=== PATIENT | female | born 1955 | race Caucasian/White ===

== ENCOUNTER 2020-01-25 13:13 | Emergency (ER) | payer MEDICARE, MEDICAID, SELFPAY ==
--- NOTE | ~2020-01-25 | US_ITS ---
EXAMINATION: US venous doppler [facility] DATE: 01/25/2020 14:26 INDICATION: Left lower limb pain. TECHNIQUE: Grayscale ultrasound images without and with compression and Doppler ultrasound images of the left lower extremity veins were obtained. COMPARISON: Ultrasound 11/27/2018 FINDINGS: The visualized portions of left common femoral vein, profunda (deep) femoral vein, femoral vein, popl iteal vein, peroneal veins, posterior tibial veins, and greater saphenous vein outflow are patent. IMPRESSION: 1. No deep venous thrombosis. Reviewed, dictated and finalized at location A.
--- NOTE | ~2020-01-25 | XR_ITS ---
EXAMINATION: XR chest 1V portable DATE: 01/25/2020 13:45 INDICATION: Shortness of breath. TECHNIQUE: A single frontal view of the chest was obtained. COMPARISON: Chest single view 02/02/2019, CT abdomen and pelvis 11/27/2018 FINDINGS: There is no pneumonia, pleural effusion, or pneumothorax. Cardiomegaly is noted. IMPRESSION: 1. Cardiomegaly. Reviewed, dictated and finalized at location A. IMPRESSION: 1. Cardiomegaly.
[2020-01-25 13:13] VITALS: BP 130/74; PULSE 92; RESP 16; TEMP 36.6; O2SAT 98
--- NOTE | 2020-01-25 13:21 | ECG_ITS ---
Measurements Intervals [place] Rate: 54 P: 48 WA: 206 QRS: 160 QRSD: 106 T: -53 QT: 497 QTc: 472 Interpretive Statements SINUS BRADYCARDIA BORDERLINE AV CONDUCTION DELAY ST-T WAVE ABNORMALITY IN ANT/INF LEADS- CONSIDER ISCHEMIA BASELINE ARTIFACT- I, II, AVR, AVL, V6 ABNORMAL ECG Electronically Signed On 01-25-2020 15:11:07 CDT by Felice Ness D.O.
[2020-01-25 13:54] LABS: Basophils Absolute Auto 0.1 K/mm3 (0.0-0.1); Basophils Percent Auto 0.6 % (0.2-1.2); Eosinophils Absolute Auto 0.2 K/mm3 (0-0.3); Eosinophils Percent Auto 2.2 % (0-4.4); Hematocrit 43.2 % (37.0-47.0); Hemoglobin 14.4 g/dL (12.0-15.0); Immature Granulocyte Absolute 0.04 K/mm3 (0.00-0.031); Immature Granulocyte Percent A 0.4 % (0-0.5); Lymphocytes Percent Auto 12.3 % (18.3-44.2); Mean Corpuscular HGB Conc 33.3 g/dl (32-36); Mean Corpuscular Hemoglobin 32.6 pg (26-34); Mean Corpuscular Volume 97.7 fl (80-100); Mean Platelet Volume 10.1 fl (7.4-10.4); Monocytes Absolute Auto 0.7 K/mm3 (0.1-0.6); Monocytes Percent Auto 7.6 % (2.6-8.5); Neutrophils Absolute Auto 6.9 K/mm3 (1.3-6.7); Neutrophils Percent Auto 76.9 % (45.5-73.1); Platelet Count Result 266 k/mm3 (150-375); Red Blood Count 4.42 M/mm3 (4.2-5.4); Red Cell Distribution Width 14.6 % (11.5-14.5); White Blood Count 8.9 K/mm3 (4.5-10.0)
[2020-01-25 14:04] LABS: Alanine Aminotransferase 29 U/L (4-35); Albumin Level 4.3 g/dL (3.5-5.1); Alkaline Phosphatase 387 U/L (38-126); Aspartate Amino Transferase 40 U/L (14-36); Bilirubin,Total 0.7 mg/dL (0.2-1.3); Blood Urea Nitrogen 46 mg/dL (7-17); Calcium 9.6 mg/dL (8.4-10.2); Carbon Dioxide 30 mmol/L (22-30); Chloride 100 mmol/L (98-107); Estimated CRCL calculation 33 ml/min; Estimated Glomerular Filt Rate 24; Glucose 149 mg/dL (65-105); INR 1.3; Potassium 4.5 mmol/L (3.4-5.0); Prothrombin Time 16.2 Seconds (11.1-14.7); Sodium 137 mmol/L (137-145)
[2020-01-25 14:05] LABS: Partial Thromboplastin Time 30.4 SECONDS (22.3-36.8)
[2020-01-25 14:17] LABS: NT Pro B Type Natriuretic Pept 4240 PG/ML (5-100); Troponin I < 0.012 ng/mL (0.000-0.034)
[2020-01-25] MEDS: FUROSEMIDE INJ 40 MG/4 ML VIAL IV PUSH (15:04)
--- NOTE | 2020-01-25 16:27 | ED.EXTPRO ---
HPI - Extremity Problem General Chief complaint: Extremity Problem,Nontraumatic Stated complaint: EDEMA R LEG Time Seen by Provider: 01/25/20 13:21 Source: patient, EMS and old records reviewed Mode of arrival: EMS Limitations: no limitations History of Present Illness HPI Narrative: Patient is a 64-year-old female who presents to emergency department per EMS for evaluation of some pain and swelling to the left leg. Patient with history of heart failure also has some wounds to the left leg which are being managed [facility]. Patient notes she has shortness of breath which is chronic and unchanged . Patient notes she has had a cough but has chronic cough denies acute URI symptoms. Patient denies sick contacts. On arrival patient resting comfortably in the room in no distress Related Data Home Medications Medication Instructions Recorded Confirmed Lactobacillus acidophilus 01/25/20 apixaban [Eliquis] 5 mg PO BID 01/25/20 01/25/20 atorvastatin 01/25/20 bisacodyl 10 mg PO ONCE PRN 01/25/20 cholecalciferol (vitamin D3) 01/25/20 docusate sodium PO BID 01/25/20 fluticasone furoate [Flonase INTRANASAL 01/25/20 Sensimist] insulin glargine [Basaglar KwikPen unit SUBCUT HS 01/25/20 U-100 Insulin] levothyroxine [Synthroid] 01/25/20 ondansetron HCl [Zofran] PRN 01/25/20 sodium chloride [[place]quillo Nasal] INTRANASAL 01/25/20 tramadol mg Q4-5H PRN 01/25/20 Allergies Allergy/AdvReac Type Severity Reaction Status Date / Time calamine Allergy Rash Verified 01/25/20 16:10 Cephalosporins Allergy Unknown Verified 01/25/20 16:10 clindamycin Allergy Unknown Verified 01/25/20 16:11 latex Allergy Unknown Verified 01/25/20 16:11 nylon Allergy Unknown Verified 01/25/20 16:11 pramoxine Allergy Unknown Verified 01/25/20 16:12 Review of Systems Review of Systems: All systems reviewed & are unremarkable except as noted in HPI and below PMFSH Past Medical History Medical History (Updated 01/25/20 @ 16:32 by Yousuf Calvillo PA-C) Chronic kidney disease Congestive heart failure Morbid obesity Social History Social History (Updated 01/25/20 @ 16:28 by Yousuf Calvillo PA-C) Smoking status: Never smoker Exam Narrative: Exam Narrative: GENERAL: Well-appearing, well-nourished, and in no acute distress. HEAD: Normocephalic, atraumatic. EYES: PERRLA and EOMI. ENT: Nares clear, no rhinorrhea or epistaxis. Mucous membranes moist. Oropharynx without tonsillar hypertrophy exudate or other lesions. NECK: Supple. No adenopathy or masses CHEST: Clear to auscultation. No respiratory distress. No wheezes rales or rhonchi HEART: Regular rate and rhythm. No murmur heard. Normal peripheral pulses. ABDOMEN: Soft, nontender, nondistended EXTREMITIES: Normal range of motion. 1+ edema to the lower extremities. Chronic wounds to the posterior left calf. SKIN: Warm, dry, no rash. NEURO: No focal deficits. Alert and oriented x3. Neurovascularly intact PSYCH: Normal mood and affect. Course Course Emergency Course: Patient in the room in no distress aware of case findings treatment plan and diagnosis Consultations Consultation #1: Discussed case with javier patient's elder counselor Date: 01/25/20 Time: 16:29 Vital Signs Vital signs: Vital Signs Temperature 98 F 01/25/20 13:13 Pulse Rate 92 01/25/20 13:13 Respiratory Rate 16 01/25/20 13:13 Blood Pressure 130/74 01/25/20 13:13 Pulse Oximetry 98 01/25/20 13:13 Temperature 98 F 01/25/20 13:13 Pulse Rate 92 01/25/20 13:13 Respiratory Rate 16 01/25/20 13:13 Blood Pressure 130/74 01/25/20 13:13 Pulse Oximetry 98 01/25/20 13:13 MDM - Extremity (Nontraumatic) MDM Narrative Medical decision making narrative: Patient in the room at this time in no distress resting comfortably normal vital signs was given a dose of Lasix felt appropriate for discharge back to the [facility] patient felt appropriate for continued car
[2020-01-25 17:00] VITALS: BP 140/82; PULSE 60; RESP 16; O2SAT 97
== END 2020-01-25 17:00 ==
PROVIDERS: Emergency Medicine Emergency Medical Services; Emergency Provider Emergency Medicine; PCP Family Medicine
DX: I50.9 Heart failure, unspecified (principal); M79.89 Other specified soft tissue disorders; N18.9 Chronic kidney disease, unspecified; E66.01 Morbid (severe) obesity due to excess calories; Z68.42 Body mass index [BMI] 45.0-49.9, adult; I51.7 Cardiomegaly; R00.1 Bradycardia, unspecified; R94.31 Abnormal electrocardiogram [ECG] [EKG]; Z79.01 Long term (current) use of anticoagulants; Z79.4 Long term (current) use of insulin
CPT/HCPCS: 36415; 71045; 80053; 83880; 84484; 85025; 85610; 85730; 93005; 93971; 96374; 99284; J1940

== ENCOUNTER 2020-06-12 14:08 | Emergency (ER) | payer MEDICARE, MEDICAID, SELFPAY ==
[2020-06-12] VITALS (23 sets, daily range): BP systolic 93–147; BP diastolic 51–112; PULSE 58–85; RESP 15–22; TEMP 36.4–36.6; O2SAT 37–100
--- NOTE | ~2020-06-12 | XR_ITS ---
XR chest 1V portable DATE: 06/12/2020 15:03 INDICATION: Low oxygen saturation. Cough, hematuria. History of COPD and congestive heart failure. TECHNIQUE: Portable upright AP chest on 06/12/2020 at 1459 hours COMPARISON: 01/25/2020 portable AP chest FINDINGS: Borderline or increased heart size. Pulmonary vascular redistribution suggests pulmonary ve nous hypertension. There is mild discoid atelectasis or scarring at the right lung base. The lungs otherwise appear amber r of infiltrate or consolidation. No pleural effusion or pneumothorax. Degenerative spurring of the thoracic and lumbar spine. Osteopenia. Surgical clips, right upper quadrant, consistent with cholecystectomy. IMPRESSION: Borderline or increased heart size Pulmonary vascular redistribution suggests mild pulmonary venous hypertension Discoid atelectasis or scarring at the right lung Reviewed, dictated and finalized at location A.
--- NOTE | 2020-06-12 14:46 | ED.GENADULT ---
HPI - General Adult General Chief complaint: Urogenital-Female Stated complaint: hematuria Source: patient Mode of arrival: ambulatory Limitations: no limitations History of Present Illness HPI narrative: This patient is a morbidly obese 64 year old female with history of Chronic renal disease, COPD, CHF, DVT on eliquis who presents for evaluation of hematuria. Patient states she has noticed blood when she urinates for 2 days. She reports bright red blood when she wipes with tissue, and she has also noticed blood drip when she stands up. She also reports blood in her underwear. She states today she has a solid bowel movement that was dark, but she states she takes iron. She did notice as small amount of blood when she wipes. She denies abdominal pain currently but she had lower abdominal cramping yesterday. She denies fever or chills. Related Data Home Medications Medication Instructions Recorded Confirmed Novolog Flexpen U-100 Insulin SUBCUT TIDWMEAL 06/12/20 albuterol mcg INHALATION 06/12/20 apixaban [Eliquis] mg BID 06/12/20 igvmuryl-[id number]-bwapudn HMB 1 ea PO BID 06/12/20 06/12/20 [Polo] azelastine 2 spray INTRANASAL DAILY 06/12/20 bumetanide [Bumex] 2 mg DAILY 06/12/20 06/12/20 cholecalciferol (vitamin D3) 50 mcg PO DAILY 06/12/20 06/12/20 dextromethorphan-guaifenesin 1 tablet PO BID 06/12/20 docusate sodium 100 mg PO BID 06/12/20 06/12/20 famotidine 20 mg BID 06/12/20 06/12/20 ferrous sulfate 325 mg DAILY 06/12/20 06/12/20 fluticasone propionate 2 spray INTRANASAL DAILY 06/12/20 guaifenesin 10 PO PRN 06/12/20 insulin detemir U-100 [Levemir DAILY 06/12/20 FlexTouch U-100 Insuln] ipratropium-albuterol 1 ml INHALATION QID PRN 06/12/20 06/12/20 levothyroxine DAILY 06/12/20 metoprolol tartrate BID 06/12/20 montelukast mg DAILY 06/12/20 oseltamivir [Tamiflu] mg DAILY 06/12/20 spironolactone 50 mg DAILY 06/12/20 06/12/20 Allergies Allergy/AdvReac Type Severity Reaction Status Date / Time calamine Allergy Rash Verified 06/12/20 14:39 Cephalosporins Allergy Unknown Verified 06/12/20 14:39 clindamycin Allergy Unknown Verified 06/12/20 14:39 latex Allergy Unknown Verified 06/12/20 14:39 nylon Allergy Unknown Verified 06/12/20 14:39 pramoxine Allergy Unknown Verified 06/12/20 14:39 Review of Systems Review of Systems: All systems reviewed & are unremarkable except as noted in HPI and below Constitutional: Constitutional: Denies chills and Denies fever(s) Respiratory: Respiratory: Denies cough and Reports dyspnea (chronic) Gastrointestinal: Gastrointestinal: Reports abdominal pain, Denies diarrhea, Denies nausea and Denies vomiting Genitourinary: Genitourinary: Reports hematuria, Denies nocturia and Denies dysuria [facility] Past Medical History Medical History (Updated 06/12/20 @ 16:48 by Nargis Bonilla MD) Chronic kidney disease Congestive heart failure Morbid obesity Exam Const: General: no acute distress and alert Nutritional Appearance: obese morbidly obese Orientation/consciousness: patient oriented x3 Eyes: EOM: EOMs intact bilaterally Chest: Chest palpation & inspection: normal inspection of the chest Resp: Effort & Inspection: normal respiratory effort and no retractions Auscultation: clear to auscultation bilaterally Cardio: Rate: regular rate Rhythm: regular rhythm GI: GI Palp: Yes Soft to palpation, No Tenderness to palpation present (GI), No Guarding due to palpation present (GI) and No Rigid due to palpation Rectal Exam: hemorrhoids (external hemorrhoid, no bleeding, no gross blood on exam) : Other: no vaginal bleeding on speculum exam Neuro: General: patient oriented x3 and moves all extremities Extrem: General: edema bilateral Course Reevaluation(s) Reevaluation #1: I have discussed with patient no gross bleeding found in urine, pelvic or rectal exam. She is stable for return home. She will be started on antibiotics for UTI. Hemoglobi
[2020-06-12 15:10] LABS: Basophils Absolute Auto 0.1 K/mm3 (0.0-0.1); Basophils Percent Auto 0.6 % (0.2-1.2); Eosinophils Absolute Auto 0.2 K/mm3 (0-0.3); Eosinophils Percent Auto 1.8 % (0-4.4); Hematocrit 43.2 % (37.0-47.0); Hemoglobin 14.1 g/dL (12.0-15.0); Immature Granulocyte Absolute 0.04 K/mm3 (0.00-0.031); Immature Granulocyte Percent A 0.4 % (0-0.5); Lymphocytes Percent Auto 10.2 % (18.3-44.2); Mean Corpuscular HGB Conc 32.6 g/dl (32-36); Mean Corpuscular Volume 98.2 fl (80-100); Mean Platelet Volume 10.4 fl (7.4-10.4); Monocytes Absolute Auto 0.7 K/mm3 (0.1-0.6); Monocytes Percent Auto 7.2 % (2.6-8.5); Neutrophils Absolute Auto 7.9 K/mm3 (1.3-6.7); Neutrophils Percent Auto 79.8 % (45.5-73.1); Platelet Count Result 217 k/mm3 (150-375); Red Cell Distribution Width 14.4 % (11.5-14.5); White Blood Count 9.9 K/mm3 (4.5-10.0)
[2020-06-12 15:16] LABS: Add Urine Microscopic? YES; Appearance Urine Clear (Clear); Bilirubin Urine Negative (Negative); Blood Urine 1+ (Negative); Color Urine Straw (Yellow); Glucose Urine UA 1+ mg/dL (Negative); Ketones Urine Negative (Negative); Leukocyte Esterase Ur 2+ LEU/UL (Negative); Nitrate Urine Negative (Negative); Protein Urine Negative (Negative); RBC Urine 21-50 /hpf (0-2); Specific Grav Ur 1.011 (1.001-1.035); Urobilinogen Urine Negative mg/dL (<2.0); WBC Urine 31-50 /hpf
[2020-06-12 15:21] LABS: Alanine Aminotransferase 22 U/L (4-35); Albumin Level 4.1 g/dL (3.5-5.1); Alkaline Phosphatase 252 U/L (38-126); Anion Gap 9 mmol/L (8-16); Aspartate Amino Transferase 32 U/L (14-36); Bilirubin,Total 0.6 mg/dL (0.2-1.3); Blood Urea Nitrogen 73 mg/dL (7-17); Calcium 9.3 mg/dL (8.4-10.2); Carbon Dioxide 28 mmol/L (22-30); Chloride 101 mmol/L (98-107); Estimated CRCL calculation 31 ml/min; Estimated Glomerular Filt Rate 21; Glucose 198 mg/dL (65-105); Potassium 4.7 mmol/L (3.4-5.0); Sodium 138 mmol/L (137-145)
--- NOTE | 2020-06-12 15:30 | PC.NURSE ---
pelvic exam done by provider. tolerated well. rectal exam done. patient repositioned in bed. call light in reach.
[2020-06-12] MEDS: CIPROFLOXACIN 250 MG TABLET PO (16:58)
--- NOTE | 2020-06-12 17:13 | PC.NURSE ---
report given to Kamille at [facility]. EMS will be here around 1745 for transfer back to the [facility].
--- NOTE | 2020-06-12 17:59 | PC.NURSE ---
resting on stretcher. waiting for EMS to transport back to [place].
--- NOTE | 2020-06-12 23:28 | PC.NURSE ---
Updated ETA 2344.
--- NOTE | 2020-06-13 00:06 | PC.NURSE ---
ETA now 0130. Patient notified.
[2020-06-13 01:49] VITALS: BP 121/67; PULSE 68; RESP 16; TEMP 36.7; O2SAT 99
== END 2020-06-13 01:55 ==
PROVIDERS: Emergency Provider General Practice; PCP Family Medicine
DX: N39.0 Urinary tract infection, site not specified (principal); N18.30 Chronic kidney disease, stage 3 unspecified; E11.22 Type 2 diabetes mellitus with diabetic chronic kidney disease; Z79.01 Long term (current) use of anticoagulants; I50.9 Heart failure, unspecified; Z86.718 Personal history of other venous thrombosis and embolism; J44.9 Chronic obstructive pulmonary disease, unspecified; E66.01 Morbid (severe) obesity due to excess calories; Z68.43 Body mass index [BMI] 50.0-59.9, adult; Z79.4 Long term (current) use of insulin
CPT/HCPCS: 36415; 51701; 71045; 80053; 81001; 85025; 86850; 86900; 86901; 87086; 99284; A9270

== ENCOUNTER 2020-10-26 15:44 | Outpatient (CLI) | payer MEDICARE, MEDICAID, SELFPAY ==
--- NOTE | ~2020-10-26 | CT_ITS ---
EXAMINATION: CT brain wo con INDICATION: Head injury COMPARISON: 02/02/2019 TECHNIQUE: Standard unenhanced head CT. The dose-length product (DLP) was 681.00 mGy-cm. The mA was a djusted according to patient size. Iterative reconstruction technique was employed. FINDINGS: There is no intracranial hemorrhage, acute infarction, or abnormal mass lesion. The ventric les are normal. There is no abnormal mass effect or midline shift. The mays-white matter differentiat ion is normal. The basal cisterns are patent. The orbits are normal. There is frontal skull hyperosto sis (hyperostosis frontalis interna), a normal variant. There is near complete opacification of the l eft maxillary and left sphenoid sinuses. IMPRESSION: 1. No acute intracranial abnormality. 2. Sinus disease. Reviewed, dictated and finalized at location A. RAL DISTRICT CLERK
== END 2020-10-26 15:45 | disposition home or self-care (01) ==
LOC: ANHIMG 15:50
DX: S09.8XXA Other specified injuries of head, initial encounter (principal); J32.9 Chronic sinusitis, unspecified
CPT/HCPCS: 70450

== ENCOUNTER 2021-04-13 14:51 | Outpatient (CLI) | payer MEDICARE, MEDICAID, SELFPAY ==
--- NOTE | ~2021-04-13 | CT_ITS ---
EXAMINATION: CT diagnostic chest wo con DATE: 04/13/2021 15:19 INDICATION: Shoulder blade mass. Swelling. Bruising. TECHNIQUE: Computed tomography (CT) of the chest was performed without intravenous contrast. The dose -length product was 350.63 mGy-cm. Automated exposure control and iterative reconstruction technique were employed. COMPARISON: CT dated 09/10/2018 FINDINGS: Status post cholecystectomy. No significant pleural or pericardial effusion. No thoracic ly mphadenopathy. There is atherosclerosis of the aorta and coronary arteries. There is evidence for chr onic granulomatous disease. No significant soft tissue abnormality. There is bibasilar atelectasis. N o endobronchial lesions. Moderate thoracic spondylosis. The right scapula and surrounding soft tissue s are unremarkable. The left scapula is not completely included in the examination. Mild dextrocurvat ure of the thoracic spine. No suspicious pulmonary nodules or masses. IMPRESSION: 1. Bibasilar atelectasis. Otherwise, no acute cardiopulmonary disease. Reviewed, dictated and finalized at location A.
== END 2021-04-13 14:52 | disposition home or self-care (01) ==
PROVIDERS: Visit Provider Internal Medicine
DX: R22.2 Localized swelling, mass and lump, trunk (principal); J98.11 Atelectasis
CPT/HCPCS: 71250

== ENCOUNTER 2021-06-26 03:42 | Inpatient (IN) | payer MEDICARE, MEDICAID, SELFPAY ==
[2021-06-26] VITALS (13 sets, daily range): BP systolic 102–132; BP diastolic 62–76; PULSE 51–102; RESP 14–18; TEMP 36.5–36.9; O2SAT 92–100; BMI 48.4
--- NOTE | ~2021-06-26 | CT_ITS ---
EXAMINATION: CT brain wo con INDICATION: Altered mental status COMPARISON: 10/26/2020 TECHNIQUE: Standard unenhanced head CT. The dose-length product (DLP) was 1362.00 mGy-cm. The mA was adjusted according to patient size. Iterative reconstruction technique was employed. FINDINGS: Motion artifact limits the examination. There is no acute intraparenchymal hemorrhage. No e vidence of mass lesion. No evidence of acute infarction. There is mild periventricular and subcortica l hypodensity probably related to small vessel ischemic disease. There is mild prominence of the sulc i and ventricles related to cerebral atrophy. Intracranial calcified cerebral atherosclerosis is note d. There are no extra-axial collections. There is no mass effect or midline shift. The orbits and sof t tissues are unremarkable. There is complete opacification of the left maxillary sinus. There is muc osal thickening of the ethmoidal air cells on the left. There is frontal skull hyperostosis (hyperost osis frontalis interna), a normal variant. IMPRESSION: 1. No acute intracranial abnormality. 2. Age related findings. 3. Sinus disease. Reviewed, dictated and finalized at location B. NO GAMES DEALER
[2021-06-26] MEDS: MORPHINE SULFATE (*CRX) 4 MG/ML INJ IV PUSH ×3 (04:15→23:44)
[2021-06-26 04:36] LABS: Basophils Absolute Auto 0.1 K/mm3 (0.0-0.1); Basophils Percent Auto 0.4 % (0.2-1.2); Eosinophils Absolute Auto 0.3 K/mm3 (0-0.3); Eosinophils Percent Auto 1.7 % (0-4.4); Hematocrit 29.4 % (37.0-47.0); Hemoglobin 9.2 g/dL (12.0-15.0); Immature Granulocyte Absolute 0.27 K/mm3 (0.00-0.031); Immature Granulocyte Percent A 1.8 % (0-0.5); Lymphocytes Absolute Auto 1.25 K/mm3 (0.9-3.2); Lymphocytes Percent Auto 8.3 % (18.3-44.2); Mean Corpuscular HGB Conc 31.3 g/dl (32-36); Mean Corpuscular Hemoglobin 31.1 pg (26-34); Mean Corpuscular Volume 99.3 fl (80-100); Mean Platelet Volume 9.2 fl (7.4-10.4); Monocytes Absolute Auto 1.6 K/mm3 (0.1-0.6); Monocytes Percent Auto 10.3 % (2.6-8.5); Neutrophils Absolute Auto 11.6 K/mm3 (1.3-6.7); Neutrophils Percent Auto 77.5 % (45.5-73.1); Platelet Count Result 375 k/mm3 (150-375); Red Blood Count 2.96 M/mm3 (4.2-5.4); Red Cell Distribution Width 16.5 % (11.5-14.5)
[2021-06-26 04:51] LABS: Lactic Acid Reflex 1.7 mmol/L (0.7-2.1)
[2021-06-26 04:54] LABS: INR 2.1
[2021-06-26 04:55] LABS: Partial Thromboplastin Time 39.1 SECONDS (22.3-36.8)
[2021-06-26 05:34] LABS: Alanine Aminotransferase 16 U/L (4-35); Albumin Level 2.8 g/dL (3.5-5.1); Alkaline Phosphatase 243 U/L (38-126); Anion Gap 8 mmol/L (8-16); Aspartate Amino Transferase 21 U/L (14-36); Bilirubin,Total 0.5 mg/dL (0.2-1.3); Blood Urea Nitrogen 66 mg/dL (7-17); Calcium 8.7 mg/dL (8.4-10.2); Carbon Dioxide 32 mmol/L (22-30); Chloride 94 mmol/L (98-107); Estimated Glomerular Filt Rate 21; Glucose 156 mg/dL (65-110); Potassium 4.6 mmol/L (3.4-5.0); Sodium 134 mmol/L (137-145)
--- NOTE | 2021-06-26 05:35 | ED.GENADULT ---
HPI - General Adult General Chief complaint: Skin/Abscess/Foreign Body Stated complaint: bleeding pressure ulcer Time Seen by Provider: 06/26/21 03:55 History of Present Illness HPI narrative: Patient is a 65-year-old female who presents ER with a bleeding wound to her right hip. Reports her senior care has been caring for this chronically and she has not seen wound care. Denies fevers or chills or sweats. She has no pain in the area. On inspection the wound is 12 cm x 9 cm in tunnels deep towards the buttock. Is malodorous as well. No overt necrosis. Left hip has a small superficial decubitus ulcer the size of a silver dollar. Related Data Home Medications Medication Instructions Recorded Confirmed acetaminophen 650 mg PO Q12H PRN 06/26/21 allopurinol 100 mg PO DAILY 06/26/21 06/26/21 amoxicillin-pot clavulanate 1 tablet PO Q12H 06/26/21 06/26/21 [Augmentin] apixaban [Eliquis] 5 mg PO BID 06/26/21 06/26/21 atorvastatin 10 mg PO HS 06/26/21 06/26/21 azelastine-fluticasone 1 spray INTRANASAL BID 06/26/21 06/26/21 bisacodyl 5 mg PO ONCE 06/26/21 06/26/21 buspirone 5 mg PO BID 06/26/21 06/26/21 cholecalciferol (vitamin D3) 50 mcg PO DAILY 06/26/21 06/26/21 collagenase clostridium histo. 1 applic TOPICAL DAILY 06/26/21 06/26/21 [Santyl] cyclobenzaprine mg 06/26/21 dextromethorphan-guaifenesin 1 tablet PO Q12H 06/26/21 06/26/21 docusate sodium 100 mg PO BID 06/26/21 06/26/21 escitalopram oxalate 5 mg PO DAILY 06/26/21 06/26/21 famotidine 10 mg PO BID 06/26/21 06/26/21 fentanyl 1 patch TRANSDERMAL Q72H 06/26/21 06/26/21 ferrous sulfate 325 mg PO DAILY 06/26/21 06/26/21 gentamicin TOPICAL 06/26/21 guaifenesin mg 06/26/21 hydrocodone-acetaminophen 1 tablet PO Q6H PRN 06/26/21 06/26/21 hydrocortisone TOPICAL 06/26/21 insulin glargine [Lantus Solostar SUBCUT 06/26/21 U-100 Insulin] insulin lispro [Humalog KwikPen SUBCUT 06/26/21 Insulin] lactulose 20 g PO BID 06/26/21 06/26/21 levothyroxine 75 mcg PO DAILY 06/26/21 06/26/21 linaclotide [Linzess] 145 mcg PO DAILY 06/26/21 06/26/21 metoprolol tartrate 50 mg PO Q12H 06/26/21 06/26/21 montelukast 10 mg PO DAILY 06/26/21 06/26/21 ondansetron HCl [Zofran] 4 mg PO Q6H PRN 06/26/21 06/26/21 polyethylene glycol 3350 [Miralax] 17 g PO DAILY 06/26/21 06/26/21 polyvinyl alcohol [Artificial 1 drp RIGHT EYE BID 06/26/21 06/26/21 Tears (polyvin alc)] potassium chloride 20 meq PO DAILY 06/26/21 06/26/21 sodium chloride [Stonewall Nasal] 2 spray INTRANASAL Q2H PRN 06/26/21 06/26/21 spironolactone 25 mg PO DAILY 06/26/21 06/26/21 torsemide mg 06/26/21 zinc sulfate 50 mg PO DAILY 06/26/21 06/26/21 Allergies Allergy/AdvReac Type Severity Reaction Status Date / Time ceftriaxone Allergy Intermediate swelling Verified 06/26/21 05:10 cephalexin Allergy Mild itching Verified 06/26/21 05:10 calamine Allergy Rash Verified 06/26/21 05:10 Cephalosporins Allergy Unknown Verified 06/26/21 05:10 clindamycin Allergy Unknown Verified 06/26/21 05:10 latex Allergy Unknown Verified 06/26/21 05:10 nylon Allergy Unknown Verified 06/26/21 05:10 pramoxine Allergy Unknown Verified 06/26/21 05:10 Review of Systems Review of Systems: All systems reviewed & are unremarkable except as noted in HPI and below Constitutional: Constitutional: Denies chills, Denies fever(s) and Reports weakness Respiratory: Respiratory: Denies cough and Denies dyspnea Gastrointestinal: Gastrointestinal: Denies abdominal pain, Denies diarrhea, Denies nausea and Denies vomiting Musculoskeletal: Musculoskeletal: Denies back pain, Denies arthralgias, Denies joint swelling and Denies muscle cramps Integumentary/Breasts: Skin/Breast: Reports erythema and Reports skin ulcer PMFSH Past Medical History Medical History (Updated 06/26/21 @ 06:32 by Omer Ortiz MD) Chronic kidney disease Chronic kidney disease Congestive heart failure Congestive heart failure COPD (chronic obstructive pulmonary disease) Depression
[2021-06-26] MEDS: SODIUM CHLORIDE 0.9% IV 1,000 ML 125 ML IV CONT ×2 (07:26→16:20)
[2021-06-26] MEDS: AZTREONAM 1 GM in DEXTROSE 5% IN WATER 50 ML 100 ML IVPB ×3 (08:10→23:56)
--- NOTE | 2021-06-26 08:10 | ADMGEN ---
This patient, Shante Uribe, was admitted to [facility] Surg Room 304-01. Patient/family oriented to hospital policies and general routines including ID bracelet, bed and alarms, visiting hours, pain management, procedures, bathroom and other care routines, personal items, smoking policy, room service/diet, and visiting hours. Information on how to activate the Rapid Response Team has been discussed. Patient/Family are encouraged to report perceived risks to care and to ask questions if they do not understand what they are told or what they should do.
[2021-06-26 08:27] LABS: Glucose Point of Care 166 mg/dl (65-105)
[2021-06-26] MEDS: LACTIC ACID 12% LOTION 225 BTL 1 APPLIC TOPICAL ×2 (09:00→23:55)
[2021-06-26] MEDS: SOD HYPOCHLORITE 1/4 STRENGTH 473 ML 1 APPLIC TOPICAL ×2 (09:00→23:50)
[2021-06-26] MEDS: TOLNAFTATE 1% POWDER 45 GM BTL 1 APPLIC TOPICAL ×2 (09:00→23:56)
[2021-06-26] MEDS: HYDROcodone/acetaminophen (*CRX) 5-325 MG TABLET 1 TAB PO (10:12)
[2021-06-26] MEDS: METOPROLOL TARTRATE 50 MG TAB PO ×2 (10:13→23:49)
[2021-06-26] MEDS: LACTULOSE 20 GM/30 ML UDC PO ×2 (10:13→16:18)
[2021-06-26] MEDS: SPIRONOLACTONE 25 MG TABLET PO (10:13)
[2021-06-26] MEDS: FAMOTIDINE 10 MG TABLET PO ×2 (10:13→16:18)
[2021-06-26] MEDS: CHOLECALCIFEROL 1,000 UNITS TABLET 2000 UNITS PO (10:14)
[2021-06-26] MEDS: allopurinoL 100 MG TABLET PO (10:14)
[2021-06-26] MEDS: busPIRone HCL 5 MG TABLET PO ×2 (10:14→17:10)
[2021-06-26] MEDS: DOCUSATE SODIUM 100 MG CAPSULE PO ×2 (10:14→16:18)
[2021-06-26] MEDS: FERROUS SULFATE 324 MG TABLET PO (10:14)
[2021-06-26] MEDS: MONTELUKAST SODIUM 10 MG TABLET PO (10:15)
[2021-06-26] MEDS: LEVOTHYROXINE SODIUM 75 MCG TABLET PO (10:15)
[2021-06-26] MEDS: ARTIFICIAL TEARS OPHTH SOLN 15 ML BOTTLE 1 DROP RIGHT EYE ×2 (10:15→16:22)
[2021-06-26] MEDS: ESCITALOPRAM OXALATE 5 MG TABLET PO (10:15)
[2021-06-26] MEDS: TORSEMIDE 20 MG TABLET BY MOUTH (10:15)
[2021-06-26] MEDS: polyethylene glycoL 3350 17 GM POWD.PACK PO (10:15)
[2021-06-26] MEDS: ZINC SULFATE 220 MG CAPSULE PO (10:17)
[2021-06-26] MEDS: INSULIN ASPART (*BKC) 100 UNITS/ML SUB-Q ×2 (10:18→12:43)
--- NOTE | 2021-06-26 10:51 | PM.CNGS ---
Assessment and Plan Assessment and plan (1) Skin ulcer of right hip with fat layer exposed: Code(s): L97.112 - Non-pressure chronic ulcer of right thigh with fat layer exposed Status: Acute Assessment and Plan: Large infected right hip ulcer that has been treated with local wound care at the [facility] and appears to likely been debrided in the past when she was seen at [facility]. There is no necrotic tissue or indication for surgical debridement at this time. Will switch her wound care to Dakin's soaked gauze dressing changes twice daily. Could consider a wound VAC down in the future if the surrounding macerated skin around the wound improves. I will also order a culture of the wound since she is limited on antibiotic choices with her allergies and potentially had VRE growth on previous culture. I have requested her surgical records from [facility] as well. Would agree with continuing IV antibiotics and local wound care for now. Will also initiate antifungal barrier ointment to her buttocks and groin. She should minimize pressure to these wounds and we discussed trying to find a chair at the [facility] that fits her better in order for her to sit up during the day. Thank you for allowing us to see the patient in consultation and we will continue to follow along with you. (2) Skin ulcer of left hip: Code(s): L97.129 - Non-pressure chronic ulcer of left thigh with unspecified severity Status: Acute Assessment and Plan: Left hip ulcer is stable and does not appear infected. No indication for surgical debridement at this time. Will initiate local wound care. Continue to monitor. Minimize pressure to this area. (3) IDDM (insulin dependent diabetes mellitus): Status: Acute Assessment and Plan: HgbA1C pending. Discussed with the patient that glucose control is imperative for wound care and healing. Management per Hospitalist. (4) COPD (chronic obstructive pulmonary disease): Code(s): J44.9 - Chronic obstructive pulmonary disease, unspecified Status: Inactive (5) Anticoagulant long-term use: Code(s): Z79.01 - snf (current) use of anticoagulants Status: Acute Assessment and Plan: On Eliquis for history of DVT/PE. (6) Congestive heart failure: Code(s): I50.9 - Heart failure, unspecified Status: Acute (7) Chronic kidney disease: Code(s): N18.9 - Chronic kidney disease, unspecified Status: Acute (8) Morbid obesity with BMI of 45.0-49.9, adult: Code(s): E66.01 - Morbid (severe) obesity due to excess calories; Z68.42 - Body mass index [BMI] 45.0-49.9, adult Status: Acute Additional Plan I have discussed the patient's case and plan of care with Dr. Marquez. History of Present Illness Consult details Consult date: 06/26/21 Reason for consult: wound care (Right hip ulcer) Requesting physician: Omer Ortiz MD Narrative: This is a 65 year old morbidly obese female who resides at [place] and was brought to the ER due to bleeding from a right hip wound. She is an insulin-dependent diabetic with a history of multiple other medical problems. 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 She has COPD and PAMELA with chronic respiratory failure on 4L O2 via nasal cannula at baseline. The patient also has a history of congestive heart failure and reportedly deals with chronic issues with edema and fluid overload. She states that about 1 month ago she began to notice a small sore on her right hip in an area that rubbed up against the armrest of her chair she sits in during the day. She states that the chair is too small for her when she has swelling and felt that this was rubbing on her hips every time she moved in the chair. She was followed by a wound care nurse at the [facility], who most recently has been applying Santyl and gentamicin to the right hip wound per her medical record. She states francisco javier
[2021-06-26 11:56] LABS: Glucose Point of Care 141 mg/dl (65-105)
[2021-06-26 11:59] LABS: Hematocrit 32.2 % (37.0-47.0); Hemoglobin 9.4 g/dL (12.0-15.0); Mean Corpuscular HGB Conc 29.2 g/dl (32-36); Mean Corpuscular Hemoglobin 30.8 pg (26-34); Mean Corpuscular Volume 105.6 fl (80-100); Mean Platelet Volume 9.3 fl (7.4-10.4); Platelet Count Result 333 k/mm3 (150-375); Red Blood Count 3.05 M/mm3 (4.2-5.4); White Blood Count 12.5 K/mm3 (4.5-10.0)
[2021-06-26 12:12] LABS: Hemoglobin A1C 7.2 % (<5.7)
--- NOTE | 2021-06-26 16:08 | PM.IMHP ---
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 Of note patient was admitted to [facility] few weeks ago and had had her bedside debridement of her wound. 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 She presented with worsening bleeding for the past 1 week and increasing pain to her right buttock area. She denies any fevers however reports some chills. She denies nausea or vomiting, worsening shortness of breath, chest pain or any other complaints. In ED patient was noted to have elevated white count and necrotic appearing decubitus ulcer. She received IV vancomycin and aztreonam in the ED and is continuing to receive the same. General surgery was contacted for wound care purposes and recommendations are appreciated Given her history of VRE he would be reasonable to change vancomycin to linezolid. Local wound care will also be resumed. Review of Systems Review of Systems: A 10 point review of systems conducted which was otherwise negative [facility] Past Medical History Medical History (Updated 06/26/21 @ 16:43 by Kirstin Dominguez MD) Chronic kidney disease Congestive heart failure COPD (chronic obstructive pulmonary disease) Depression Diabetes DVT (deep venous thrombosis) Gout Hypercholesterolemia Hypertension Hypothyroidism Morbid obesity Obstructive sleep apnea Pulmonary embolism Surgical History Surgical History History of cholecystectomy History of hysterectomy Family History Family History Other No pertinent family history Social History Social History Social History: Lives at [facility] for the past 3 years. Smoking status: Never smoker Alcohol intake: never Substance use: never Living arrangements: custodial Gender identity (if verbalized by the patient): Female Spiritual care concerns: No Meds Home Medications and Allergies Home Medications Medication Instructions Recorded Confirmed Type acetaminophen 650 mg PO Q6H PRN 06/26/21 06/26/21 History allopurinol 100 mg PO DAILY 06/26/21 06/26/21 History amoxicillin-pot clavulanate 1 tablet PO Q12H 06/26/21 06/26/21 History [Augmentin] apixaban [Eliquis] 5 mg PO Q12H 06/26/21 06/26/21 History ascorbic acid (vitamin C) 500 mg PO BID 06/26/21 06/26/21 History atorvastatin 10 mg PO QPM 06/26/21 06/26/21 History azelastine-fluticasone 1 spray INTRANASAL BID 06/26/21 06/26/21 History bisacodyl 10 mg PO DAILY PRN 06/26/21 06/26/21 History buspirone 5 mg PO Q12H 06/26/21 06/26/21 History cholecalciferol (vitamin D3) 50 mcg PO DAILY 06/26/21 06/26/21 History collagenase clostridium histo. 1 applic TOPICAL DAILY 06/26/21 06/26/21 History [Santyl] cyclobenzaprine 10 mg PO Q12H 06/26/21 06/26/21 History dextromethorphan-guaifenesin 1 tablet PO Q12H PRN 06/26/21 06/26/21 History docusate sodium 100 mg PO BID 06/26/21 06/26/21 History escitalopram oxalate 5 mg PO DAILY 06/26/21 06/26/21 History famotidine 10 mg PO Q12H 06/26/21 06/26/21 History fentanyl 1 patch TRANSDERMAL Q72H 06/26/21 06/26/21 History ferrous sulfate 325 mg PO DAILY 06/26/21 06/26/21 History gentamicin 1 applic TOPICAL DAILY 06/26/21 06/26/21 History guaifenesin 200 mg PO Q8H PRN 06/26/21 06/26/21 History hydrocodone-acetaminophen 1 tablet PO Q6H PRN 06/26/21 06/26/21 History hydrocortisone See Rx Instructions .ROUTE 06/26/21 06/26/21 History .COMPLEX PRN insulin glargine [Lantus Solostar 22 unit SUBCUT Q12H 06/26/21 06/26/21 History U-100 Insulin] insulin lispro [Humalog KwikP
[2021-06-26] MEDS: BISACODYL 5 MG TABLET EC PO (16:18)
[2021-06-26 17:15] LABS: Add Urine Microscopic? YES; Appearance Urine Cloudy (Clear); Bacteria Urine Trace /hpf; Bilirubin Urine Negative (Negative); Blood Urine Negative (Negative); Color Urine Yellow (Yellow); Glucose Urine UA Negative (Negative); Ketones Urine Negative (Negative); Leukocyte Esterase Ur 3+ LEU/UL (NEGATIVE); Mucus Urine Rare /lpf; Nitrate Urine Negative (Negative); Protein Urine Negative (Negative); Specific Grav Ur 1.013 (1.001-1.035); Squamous Epithelial Cell Urine Few /hpf (Few); Urobilinogen Urine Negative mg/dL (<2.0); WBC Clumps Urine Present /HPF; WBC Urine >75 /hpf (0-3)
[2021-06-26 17:32] LABS: Glucose Point of Care 69 mg/dl (65-105)
[2021-06-26 18:19] LABS: Creatine Kinase 41 U/L (30-135)
[2021-06-26 21:33] LABS: Glucose Point of Care 101 mg/dl (65-105)
[2021-06-26] MEDS: INSULIN GLARGINE (*BKC) 100 UNITS/ML 20 UNITS SUB-Q (23:06)
[2021-06-26] MEDS: DAPTOmycin 700 MG in SODIUM CHLORIDE 0.9% IV 50 ML 100 MG IVPB (23:07)
[2021-06-26] MEDS: AZELASTINE HCL NASAL 0.1% 137 MCG/SPR 30 ML BTL 1 SPRAY NASAL (23:54)
[2021-06-26] MEDS: FLUTICASONE PROPIONATE 0.05% NA SPR 16 GM BTL (*BKC) 1 SPRAY NASAL (23:55)
[2021-06-27 06:00] VITALS: BP 103/60; PULSE 90; RESP 18; TEMP 36.6; O2SAT 100
[2021-06-27] MEDS: SODIUM CHLORIDE 0.9% IV 1,000 ML 125 ML IV CONT ×2 (06:07→14:42)
[2021-06-27] MEDS: AZTREONAM 1 GM in DEXTROSE 5% IN WATER 50 ML 100 ML IVPB ×3 (06:08→21:50)
[2021-06-27] MEDS: LEVOTHYROXINE SODIUM 75 MCG TABLET PO (06:11)
[2021-06-27 06:15] LABS: Basophils Absolute Auto 0.1 K/mm3 (0.0-0.1); Basophils Percent Auto 0.6 % (0.2-1.2); Eosinophils Absolute Auto 0.2 K/mm3 (0-0.3); Eosinophils Percent Auto 1.6 % (0-4.4); Hematocrit 27.2 % (37.0-47.0); Hemoglobin 8.7 g/dL (12.0-15.0); Immature Granulocyte Absolute 0.24 K/mm3 (0.00-0.031); Immature Granulocyte Percent A 1.8 % (0-0.5); Lymphocytes Absolute Auto 1.32 K/mm3 (0.9-3.2); Lymphocytes Percent Auto 9.7 % (18.3-44.2); Mean Corpuscular Hemoglobin 31.2 pg (26-34); Mean Corpuscular Volume 97.5 fl (80-100); Mean Platelet Volume 8.9 fl (7.4-10.4); Monocytes Absolute Auto 1.2 K/mm3 (0.1-0.6); Monocytes Percent Auto 8.6 % (2.6-8.5); Neutrophils Absolute Auto 10.6 K/mm3 (1.3-6.7); Neutrophils Percent Auto 77.7 % (45.5-73.1); Platelet Count Result 358 k/mm3 (150-375); Red Blood Count 2.79 M/mm3 (4.2-5.4); Red Cell Distribution Width 16.6 % (11.5-14.5); White Blood Count 13.7 K/mm3 (4.5-10.0)
[2021-06-27 07:48] LABS: Erythrocyte Sedimentation Rate > 140 mm/hr (0-20)
[2021-06-27 08:09] LABS: Alanine Aminotransferase 16 U/L (4-35); Albumin Level 2.5 g/dL (3.5-5.1); Alkaline Phosphatase 226 U/L (38-126); Anion Gap 7 mmol/L (8-16); Aspartate Amino Transferase 28 U/L (14-36); Bilirubin,Total 0.5 mg/dL (0.2-1.3); Blood Urea Nitrogen 64 mg/dL (7-17); Calcium 8.5 mg/dL (8.4-10.2); Carbon Dioxide 28 mmol/L (22-30); Chloride 98 mmol/L (98-107); Estimated CRCL calculation 32 ml/min; Estimated Glomerular Filt Rate 22; Glucose 149 mg/dL (65-110); Potassium 4.6 mmol/L (3.4-5.0); Sodium 133 mmol/L (137-145)
[2021-06-27] MEDS: INSULIN ASPART (*BKC) 100 UNITS/ML SUB-Q ×2 (08:12→12:18)
[2021-06-27] MEDS: TORSEMIDE 20 MG TABLET BY MOUTH (08:17)
[2021-06-27] MEDS: CHOLECALCIFEROL 1,000 UNITS TABLET 2000 UNITS PO (08:17)
[2021-06-27] MEDS: LACTULOSE 20 GM/30 ML UDC PO ×2 (08:18→17:41)
[2021-06-27] MEDS: DOCUSATE SODIUM 100 MG CAPSULE PO ×2 (08:18→17:41)
[2021-06-27] MEDS: FAMOTIDINE 10 MG TABLET PO ×2 (08:18→17:42)
[2021-06-27] MEDS: polyethylene glycoL 3350 17 GM POWD.PACK PO (08:18)
[2021-06-27] MEDS: MONTELUKAST SODIUM 10 MG TABLET PO (08:19)
[2021-06-27] MEDS: ESCITALOPRAM OXALATE 5 MG TABLET PO (08:19)
[2021-06-27] MEDS: FERROUS SULFATE 324 MG TABLET PO (08:19)
[2021-06-27] MEDS: ZINC SULFATE 220 MG CAPSULE PO (08:19)
[2021-06-27 08:20] VITALS: PULSE 91
[2021-06-27] MEDS: METOPROLOL TARTRATE 50 MG TAB PO ×2 (08:20→20:37)
[2021-06-27] MEDS: AZELASTINE HCL NASAL 0.1% 137 MCG/SPR 30 ML BTL 1 SPRAY NASAL ×2 (08:21→21:50)
[2021-06-27] MEDS: ARTIFICIAL TEARS OPHTH SOLN 15 ML BOTTLE 1 DROP RIGHT EYE ×2 (08:21→17:42)
[2021-06-27] MEDS: FLUTICASONE PROPIONATE 0.05% NA SPR 16 GM BTL (*BKC) 1 SPRAY NASAL ×2 (08:22→21:50)
[2021-06-27 09:09] LABS: Glucose Point of Care 158 mg/dl (65-105)
[2021-06-27 09:49] LABS: Hemoglobin A1C 7.1 % (<5.7)
[2021-06-27] MEDS: busPIRone HCL 5 MG TABLET PO ×2 (09:54→17:42)
[2021-06-27] MEDS: SPIRONOLACTONE 25 MG TABLET PO (09:54)
[2021-06-27] MEDS: allopurinoL 100 MG TABLET PO (09:54)
[2021-06-27 10:15] LABS: Creatine Kinase 26 U/L (30-135)
--- NOTE | 2021-06-27 10:38 | PC.NURSE ---
On 06/27/21, the student, [ Abel Armendariz], provided care and completed [facility] documentation on this patient. I have reviewed the student's documentation and agree with the findings.
[2021-06-27 10:48] LABS: Folic Acid 7.3 ng/mL (2.76->20); Vitamin B12 > 1000.0 pg/mL (239-931)
[2021-06-27] MEDS: ACETAMINOPHEN 325 MG TABLET 650 MG PO (12:17)
[2021-06-27 12:36] LABS: Glucose Point of Care 116 mg/dl (65-105)
--- NOTE | 2021-06-27 13:24 | PM.IMPN ---
Progress Note: A&P Assessment and Plan (1) Stage 2 skin ulcer of sacral region: Code(s): L98.429 - Non-pressure chronic ulcer of back with unspecified severity Status: Acute (2) Skin ulcer of left hip: Qualifiers: Non-pressure ulcer stage: with fat layer exposed Qualified Code(s): L97.122 - Non-pressure chronic ulcer of left thigh with fat layer exposed Code(s): L97.129 - Non-pressure chronic ulcer of left thigh with unspecified severity Status: Acute (3) Morbid obesity with BMI of 45.0-49.9, adult: Code(s): E66.01 - Morbid (severe) obesity due to excess calories; Z68.42 - Body mass index [BMI] 45.0-49.9, adult Status: Acute (4) Anticoagulant long-term use: Code(s): Z79.01 - jail (current) use of anticoagulants Status: Acute (5) Chronic kidney disease: Qualifiers: Chronic kidney disease stage: stage 2 (mild) Qualified Code(s): N18.2 - Chronic kidney disease, stage 2 (mild) Code(s): N18.9 - Chronic kidney disease, unspecified Status: Acute (6) Congestive heart failure: Qualifiers: Heart failure type: diastolic Heart failure chronicity: chronic Qualified Code(s): I50.32 - Chronic diastolic (congestive) heart failure Code(s): I50.9 - Heart failure, unspecified Status: Acute (7) IDDM (insulin dependent diabetes mellitus): Status: Acute (8) Decubitus ulcer, infected: Qualifiers: Pressure injury stage: stage 2 Qualified Code(s): L89.92 - Pressure ulcer of unspecified site, stage 2; L08.9 - Local infection of the skin and subcutaneous tissue, unspecified Code(s): L89.90 - Pressure ulcer of unspecified site, unspecified stage; L08.9 - Local infection of the skin and subcutaneous tissue, unspecified Status: Acute (9) Leukocytosis: Qualifiers: Leukocytosis type: unspecified Qualified Code(s): D72.829 - Elevated white blood cell count, unspecified Code(s): D72.829 - Elevated white blood cell count, unspecified Status: Acute (10) Chronic anemia: Code(s): D64.9 - Anemia, unspecified Status: Acute (11) Abnormal urinalysis: Code(s): R82.90 - Unspecified abnormal findings in urine Status: Acute Additional Plan 1. Infected decubitus ulcer to the sacrum: -since the patient has history of VRE, we will discontinue vancomycin for now and start the patient on daptomycin IV dosed every 48 hours given her renal insufficiency -during the time that she use even daptomycin, atorvastatin will be discontinued. And a CK levels will be monitored (CK levels this AM are within normal limts) -general surgery has evaluated patient and they will provide local wound care. Do not suggest any debridement at this time - Wound cultures have been obtained and antibiotics would be optimized accordingly. -given multiple allergies and sternum in the continued for now 2. Bleeding from decubitus ulcer: -presented with a hemoglobin of 9; last baseline available from 2019 was 11. -Eliquis was held yesterday on 06/26. Since hemoglobin has been stable minimal bleeding, patient be resumed on her dose of Eliquis. TSH, folic acid and vitamin B12 levels are within normal limits. 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 She is being managed as a case of infected right hip decubitus ulcer along with leukocytosis. Patient has been followed by General surgery are recommending [place] since. Wound cultures have been obtained, blood cultures and urine cultures are also awaited. Currently patient is receiving IV daptomycin and IV Ancef given him for prior history of possi
[2021-06-27 14:00] VITALS: BP 124/72; PULSE 90; RESP 18; TEMP 35.9; O2SAT 94
[2021-06-27] MEDS: TOLNAFTATE 1% POWDER 45 GM BTL 1 APPLIC TOPICAL ×2 (14:42→20:39)
[2021-06-27] MEDS: SOD HYPOCHLORITE 1/4 STRENGTH 473 ML 1 APPLIC TOPICAL ×2 (14:42→20:39)
[2021-06-27 16:48] LABS: Glucose Point of Care 129 mg/dl (65-105)
[2021-06-27 20:00] VITALS: PULSE 84; RESP 18; O2SAT 100
[2021-06-27 20:37] VITALS: PULSE 90
[2021-06-27] MEDS: APIXABAN 5 MG TABLET PO (20:38)
[2021-06-27] MEDS: INSULIN GLARGINE (*BKC) 100 UNITS/ML 20 UNITS SUB-Q (20:42)
[2021-06-27 20:49] LABS: Glucose Point of Care 116 mg/dl (65-105)
[2021-06-27 22:00] VITALS: BP 99/47; PULSE 84; RESP 18; TEMP 36.1; O2SAT 100
[2021-06-27] MEDS: MORPHINE SULFATE (*CRX) 4 MG/ML INJ IV PUSH (23:42)
[2021-06-28] VITALS (8 sets, daily range): BP systolic 92–130; BP diastolic 53–64; PULSE 80–92; RESP 14–20; TEMP 35.7–36.6; O2SAT 85–100; BMI 10.0
[2021-06-28] MEDS: SODIUM CHLORIDE 0.9% IV 1,000 ML 125 ML IV CONT ×3 (02:50→18:43)
[2021-06-28] MEDS: AZTREONAM 1 GM in DEXTROSE 5% IN WATER 50 ML 100 ML IVPB ×3 (05:09→22:46)
[2021-06-28 05:56] LABS: Alanine Aminotransferase 21 U/L (4-35); Albumin Level 2.9 g/dL (3.5-5.1); Alkaline Phosphatase 223 U/L (38-126); Anion Gap 10 mmol/L (8-16); Aspartate Amino Transferase 36 U/L (14-36); Basophils Absolute Auto 0.1 K/mm3 (0.0-0.1); Basophils Percent Auto 0.6 % (0.2-1.2); Bilirubin,Total 0.6 mg/dL (0.2-1.3); Blood Urea Nitrogen 61 mg/dL (7-17); Calcium 8.1 mg/dL (8.4-10.2); Carbon Dioxide 24 mmol/L (22-30); Chloride 98 mmol/L (98-107); Creatine Kinase 34 U/L (30-135); Eosinophils Absolute Auto 0.3 K/mm3 (0-0.3); Eosinophils Percent Auto 2.1 % (0-4.4); Estimated CRCL calculation 32 ml/min; Estimated Glomerular Filt Rate 22; Glucose 125 mg/dL (65-110); Hematocrit 26.1 % (37.0-47.0); Hemoglobin 7.7 g/dL (12.0-15.0); Immature Granulocyte Absolute 0.17 K/mm3 (0.00-0.031); Immature Granulocyte Percent A 1.4 % (0-0.5); Lymphocytes Absolute Auto 1.49 K/mm3 (0.9-3.2); Lymphocytes Percent Auto 11.9 % (18.3-44.2); Magnesium 1.9 mg/dL (1.6-2.3); Mean Corpuscular HGB Conc 29.5 g/dl (32-36); Mean Corpuscular Hemoglobin 30.3 pg (26-34); Mean Corpuscular Volume 102.8 fl (80-100); Mean Platelet Volume 9.5 fl (7.4-10.4); Monocytes Absolute Auto 1.1 K/mm3 (0.1-0.6); Monocytes Percent Auto 8.5 % (2.6-8.5); Neutrophils Absolute Auto 9.5 K/mm3 (1.3-6.7); Neutrophils Percent Auto 75.5 % (45.5-73.1); Platelet Count Result 312 k/mm3 (150-375); Potassium 4.1 mmol/L (3.4-5.0); Red Blood Count 2.54 M/mm3 (4.2-5.4); Sodium 132 mmol/L (137-145); White Blood Count 12.5 K/mm3 (4.5-10.0)
[2021-06-28] MEDS: LEVOTHYROXINE SODIUM 75 MCG TABLET PO (06:16)
[2021-06-28 06:25] LABS: Platelet Estimate Adequate (Adequate); Poikilocytosis 1+ (NORMAL)
[2021-06-28 07:54] LABS: Glucose Point of Care 112 mg/dl (65-105)
[2021-06-28] MEDS: INSULIN ASPART (*BKC) 100 UNITS/ML SUB-Q ×2 (08:49→17:37)
[2021-06-28] MEDS: allopurinoL 100 MG TABLET PO (08:50)
[2021-06-28] MEDS: busPIRone HCL 5 MG TABLET PO ×2 (08:51→17:34)
[2021-06-28] MEDS: CHOLECALCIFEROL 1,000 UNITS TABLET 2000 UNITS PO (08:51)
[2021-06-28] MEDS: ARTIFICIAL TEARS OPHTH SOLN 15 ML BOTTLE 1 DROP RIGHT EYE (08:51)
[2021-06-28] MEDS: DOCUSATE SODIUM 100 MG CAPSULE PO ×2 (08:52→17:33)
[2021-06-28] MEDS: ESCITALOPRAM OXALATE 5 MG TABLET PO (08:52)
[2021-06-28] MEDS: FERROUS SULFATE 324 MG TABLET PO (08:53)
[2021-06-28] MEDS: FAMOTIDINE 10 MG TABLET PO ×2 (08:53→17:34)
[2021-06-28] MEDS: polyethylene glycoL 3350 17 GM POWD.PACK PO (08:56)
[2021-06-28] MEDS: MONTELUKAST SODIUM 10 MG TABLET PO (08:56)
[2021-06-28] MEDS: LACTULOSE 20 GM/30 ML UDC PO ×2 (08:56→17:34)
[2021-06-28] MEDS: ZINC SULFATE 220 MG CAPSULE PO (08:56)
[2021-06-28 10:03] LABS: INR 1.9; Prothrombin Time 21.5 Seconds (11.1-14.7)
[2021-06-28 11:22] LABS: Iron 53 ug/dL (37-170)
[2021-06-28 11:37] LABS: Percent Iron Saturation 28 % (20-50)
[2021-06-28 12:22] LABS: Glucose Point of Care 86 mg/dl (65-105)
[2021-06-28] MEDS: MORPHINE SULFATE (*CRX) 4 MG/ML INJ IV PUSH (12:47)
[2021-06-28] MEDS: SOD HYPOCHLORITE 1/4 STRENGTH 473 ML 1 APPLIC TOPICAL ×2 (13:13→20:32)
[2021-06-28] MEDS: LACTIC ACID 12% LOTION 225 BTL 1 APPLIC TOPICAL (13:13)
[2021-06-28] MEDS: TOLNAFTATE 1% POWDER 45 GM BTL 1 APPLIC TOPICAL ×2 (13:14→20:31)
[2021-06-28] MEDS: FLUTICASONE PROPIONATE 0.05% NA SPR 16 GM BTL (*BKC) 1 SPRAY NASAL ×2 (13:17→20:31)
[2021-06-28] MEDS: AZELASTINE HCL NASAL 0.1% 137 MCG/SPR 30 ML BTL 1 SPRAY NASAL ×2 (13:17→20:30)
[2021-06-28] MEDS: fentaNYL (*CRX) 50 MCG PATCH TRANSDERM (13:34)
--- NOTE | 2021-06-28 13:42 | PC.NURSE ---
On 06/28/21, the student, Deja Salcedo, provided care and completed [facility] documentation on this patient. I have reviewed the student's documentation and agree with the findings.
--- NOTE | 2021-06-28 15:40 | PM.IMPN ---
Progress Note: A&P Assessment and Plan (1) Hypotension: Qualifiers: Hypotension type: unspecified hypotension type Qualified Code(s): I95.9 - Hypotension, unspecified Code(s): I95.9 - Hypotension, unspecified Status: Acute (2) Acute on chronic anemia: Code(s): D64.9 - Anemia, unspecified Status: Acute (3) Leukocytosis: Qualifiers: Leukocytosis type: unspecified Qualified Code(s): D72.829 - Elevated white blood cell count, unspecified Code(s): D72.829 - Elevated white blood cell count, unspecified Status: Acute (4) Asymptomatic bacteriuria: Code(s): R82.71 - Bacteriuria Status: Acute (5) Hyponatremia: Code(s): E87.1 - Hypo-osmolality and hyponatremia Status: Acute (6) Stage 2 skin ulcer of sacral region: Code(s): L98.429 - Non-pressure chronic ulcer of back with unspecified severity Status: Acute (7) Chronic kidney disease: Qualifiers: Chronic kidney disease stage: stage 2 (mild) Qualified Code(s): N18.2 - Chronic kidney disease, stage 2 (mild) Code(s): N18.9 - Chronic kidney disease, unspecified Status: Acute (8) History of infection with vancomycin resistant Enterococcus (VRE): Code(s): Z86.19 - Personal history of other infectious and parasitic diseases Status: Acute (9) COPD (chronic obstructive pulmonary disease): Qualifiers: COPD type: unspecified COPD Qualified Code(s): J44.9 - Chronic obstructive pulmonary disease, unspecified Code(s): J44.9 - Chronic obstructive pulmonary disease, unspecified Status: Acute (10) Chronic respiratory failure with hypoxia: Code(s): J96.11 - Chronic respiratory failure with hypoxia Status: Acute (11) Morbid obesity: Code(s): E66.01 - Morbid (severe) obesity due to excess calories Status: Acute (12) DVT (deep venous thrombosis): Qualifiers: DVT location: lower extremity Affected thrombotic vein of extremity: unspecified vein of extremity Chronicity: unspecified Laterality: unspecified laterality Qualified Code(s): I82.409 - Acute embolism and thrombosis of unspecified deep veins of unspecified lower extremity Code(s): I82.409 - Acute embolism and thrombosis of unspecified deep veins of unspecified lower extremity Status: Resolved (13) Hypertension: Qualifiers: Hypertension type: primary hypertension Qualified Code(s): I10 - Essential (primary) hypertension Code(s): I10 - Essential (primary) hypertension Status: Chronic (14) Hypothyroidism: Qualifiers: Hypothyroidism type: unspecified Qualified Code(s): E03.9 - Hypothyroidism, unspecified Code(s): E03.9 - Hypothyroidism, unspecified Status: Chronic (15) Hypercholesterolemia: Code(s): E78.00 - Pure hypercholesterolemia, unspecified Status: Chronic (16) IDDM (insulin dependent diabetes mellitus): Status: Acute (17) Congestive heart failure: Qualifiers: Heart failure type: diastolic Heart failure chronicity: chronic Qualified Code(s): I50.32 - Chronic diastolic (congestive) heart failure Code(s): I50.9 - Heart failure, unspecified Status: Acute Additional Plan 1. Hypotension: -possibly secondary to infected decubitus ulcer -will hold spironolactone, torsemide and metoprolol -received 500 mL bolus with some improvement of blood pressure noted -Does remain asymptomatic completely all the time -will re-evaluate in a.m. 2. Acute on chronic anemia: -noted to hemoglobin downtrended to 7.7 (baseline is 9-10) -iron and ferritin levels concerning for anemia of chronic disease -patient does have history of CKD this patient had contributed to her anemia -given hypotension this morning we will hold Eliquis for today she is understanding (the patient is aware of) that will increase the risk of DVT/PE. And she accepts it. -T
[2021-06-28 16:53] LABS: Glucose Point of Care 94 mg/dl (65-105)
[2021-06-28 17:14] LABS: Hematocrit 27.4 % (37.0-47.0); Hemoglobin 8.4 g/dL (12.0-15.0)
[2021-06-28] MEDS: DAPTOmycin 700 MG in SODIUM CHLORIDE 0.9% IV 50 ML 100 MG IVPB (20:26)
[2021-06-28] MEDS: METOPROLOL TARTRATE 50 MG TAB PO (20:27)
[2021-06-28] MEDS: INSULIN GLARGINE (*BKC) 100 UNITS/ML 20 UNITS SUB-Q (20:32)
[2021-06-28 21:06] LABS: Glucose Point of Care 115 mg/dl (65-105)
[2021-06-29] VITALS (8 sets, daily range): BP systolic 101–142; BP diastolic 48–88; PULSE 74–88; RESP 18–20; TEMP 36–36.6; O2SAT 99–100
[2021-06-29] MEDS: AZTREONAM 1 GM in DEXTROSE 5% IN WATER 50 ML 100 ML IVPB ×3 (05:16→21:41)
[2021-06-29] MEDS: SODIUM CHLORIDE 0.9% IV 1,000 ML 125 ML IV CONT ×2 (05:18→14:47)
[2021-06-29] MEDS: LEVOTHYROXINE SODIUM 75 MCG TABLET PO (05:19)
[2021-06-29 06:19] LABS: Basophils Absolute Auto 0.1 K/mm3 (0.0-0.1); Basophils Percent Auto 0.5 % (0.2-1.2); Eosinophils Absolute Auto 0.5 K/mm3 (0-0.3); Eosinophils Percent Auto 3.7 % (0-4.4); Hematocrit 26.2 % (37.0-47.0); Immature Granulocyte Absolute 0.23 K/mm3 (0.00-0.031); Immature Granulocyte Percent A 1.7 % (0-0.5); Lymphocytes Absolute Auto 1.33 K/mm3 (0.9-3.2); Lymphocytes Percent Auto 9.9 % (18.3-44.2); Mean Corpuscular HGB Conc 30.5 g/dl (32-36); Mean Corpuscular Hemoglobin 30.3 pg (26-34); Mean Corpuscular Volume 99.2 fl (80-100); Mean Platelet Volume 9.3 fl (7.4-10.4); Monocytes Absolute Auto 1.2 K/mm3 (0.1-0.6); Neutrophils Absolute Auto 10.1 K/mm3 (1.3-6.7); Neutrophils Percent Auto 75.2 % (45.5-73.1); Nucleated Red Blood Cells Perc 0.1 % (0.0-0.2); Platelet Count Result 331 k/mm3 (150-375); Red Blood Count 2.64 M/mm3 (4.2-5.4); Red Cell Distribution Width 17.4 % (11.5-14.5); White Blood Count 13.4 K/mm3 (4.5-10.0)
[2021-06-29 06:51] LABS: Vancomycin Trough 8.1 ug/mL (10.0-20.0)
[2021-06-29 06:54] LABS: Lactic Acid Reflex 1.8 mmol/L (0.7-2.1)
[2021-06-29 07:25] LABS: Alanine Aminotransferase 22 U/L (4-35); Albumin Level 2.8 g/dL (3.5-5.1); Alkaline Phosphatase 232 U/L (38-126); Anion Gap 12 mmol/L (8-16); Aspartate Amino Transferase 36 U/L (14-36); Bilirubin,Total 0.6 mg/dL (0.2-1.3); Blood Urea Nitrogen 61 mg/dL (7-17); Calcium 8.2 mg/dL (8.4-10.2); Carbon Dioxide 24 mmol/L (22-30); Chloride 100 mmol/L (98-107); Creatine Kinase 24 U/L (30-135); Estimated CRCL calculation 36 ml/min; Estimated Glomerular Filt Rate 26; Glucose 96 mg/dL (65-110); Magnesium 1.9 mg/dL (1.6-2.3); Phosphorus 3.9 mg/dL (2.5-4.5); Potassium 4.8 mmol/L (3.4-5.0); Sodium 136 mmol/L (137-145)
[2021-06-29 08:21] LABS: Glucose Point of Care 103 mg/dl (65-105)
[2021-06-29] MEDS: INSULIN ASPART (*BKC) 100 UNITS/ML SUB-Q (08:56)
[2021-06-29] MEDS: AZELASTINE HCL NASAL 0.1% 137 MCG/SPR 30 ML BTL 1 SPRAY NASAL ×2 (08:58→21:42)
[2021-06-29] MEDS: ZINC SULFATE 220 MG CAPSULE PO (08:59)
[2021-06-29] MEDS: ESCITALOPRAM OXALATE 5 MG TABLET PO (08:59)
[2021-06-29] MEDS: FAMOTIDINE 10 MG TABLET PO ×2 (08:59→16:29)
[2021-06-29] MEDS: CHOLECALCIFEROL 1,000 UNITS TABLET 2000 UNITS PO (09:00)
[2021-06-29] MEDS: FERROUS SULFATE 324 MG TABLET PO (09:00)
[2021-06-29] MEDS: DOCUSATE SODIUM 100 MG CAPSULE PO ×2 (09:01→16:29)
[2021-06-29] MEDS: MONTELUKAST SODIUM 10 MG TABLET PO (09:01)
[2021-06-29] MEDS: METOPROLOL TARTRATE 50 MG TAB PO ×2 (09:03→21:41)
[2021-06-29] MEDS: APIXABAN 5 MG TABLET PO ×2 (09:03→21:41)
[2021-06-29] MEDS: busPIRone HCL 5 MG TABLET PO ×2 (09:04→16:29)
[2021-06-29] MEDS: allopurinoL 100 MG TABLET PO (09:04)
[2021-06-29] MEDS: LACTULOSE 20 GM/30 ML UDC PO ×2 (09:05→16:29)
[2021-06-29] MEDS: FLUTICASONE PROPIONATE 0.05% NA SPR 16 GM BTL (*BKC) 1 SPRAY NASAL ×2 (09:06→21:42)
[2021-06-29] MEDS: polyethylene glycoL 3350 17 GM POWD.PACK PO (09:06)
[2021-06-29] MEDS: ARTIFICIAL TEARS OPHTH SOLN 15 ML BOTTLE 1 DROP RIGHT EYE ×2 (09:06→16:29)
[2021-06-29] MEDS: MORPHINE SULFATE (*CRX) 4 MG/ML INJ IV PUSH ×2 (11:07→21:48)
[2021-06-29] MEDS: LACTIC ACID 12% LOTION 225 BTL 1 APPLIC TOPICAL (11:23)
[2021-06-29] MEDS: SOD HYPOCHLORITE 1/4 STRENGTH 473 ML 1 APPLIC TOPICAL ×2 (11:23→21:48)
[2021-06-29] MEDS: TOLNAFTATE 1% POWDER 45 GM BTL 1 APPLIC TOPICAL ×2 (11:24→21:41)
[2021-06-29 12:26] LABS: Glucose Point of Care 75 mg/dl (65-105)
[2021-06-29 16:24] LABS: Glucose Point of Care 89 mg/dl (65-105)
--- NOTE | 2021-06-29 16:40 | PM.IMPN ---
Progress Note: A&P Assessment and Plan (1) Stage 2 skin ulcer of sacral region: Code(s): L98.429 - Non-pressure chronic ulcer of back with unspecified severity Status: Acute (2) Decubitus ulcer, infected: Qualifiers: Pressure injury stage: stage 2 Qualified Code(s): L89.92 - Pressure ulcer of unspecified site, stage 2; L08.9 - Local infection of the skin and subcutaneous tissue, unspecified Code(s): L89.90 - Pressure ulcer of unspecified site, unspecified stage; L08.9 - Local infection of the skin and subcutaneous tissue, unspecified Status: Acute (3) Asymptomatic bacteriuria: Code(s): R82.71 - Bacteriuria Status: Acute (4) Acute on chronic anemia: Code(s): D64.9 - Anemia, unspecified Status: Chronic (5) Hypotension: Qualifiers: Hypotension type: unspecified hypotension type Qualified Code(s): I95.9 - Hypotension, unspecified Code(s): I95.9 - Hypotension, unspecified Status: Resolved (6) Leukocytosis: Qualifiers: Leukocytosis type: unspecified Qualified Code(s): D72.829 - Elevated white blood cell count, unspecified Code(s): D72.829 - Elevated white blood cell count, unspecified Status: Acute (7) Chronic kidney disease: Qualifiers: Chronic kidney disease stage: stage 2 (mild) Qualified Code(s): N18.2 - Chronic kidney disease, stage 2 (mild) Code(s): N18.9 - Chronic kidney disease, unspecified Status: Acute (8) Congestive heart failure: Qualifiers: Heart failure type: diastolic Heart failure chronicity: chronic Qualified Code(s): I50.32 - Chronic diastolic (congestive) heart failure Code(s): I50.9 - Heart failure, unspecified Status: Chronic (9) Chronic respiratory failure with hypoxia: Code(s): J96.11 - Chronic respiratory failure with hypoxia Status: Acute (10) Morbid obesity: Code(s): E66.01 - Morbid (severe) obesity due to excess calories Status: Acute (11) DVT (deep venous thrombosis): Qualifiers: DVT location: lower extremity Affected thrombotic vein of extremity: unspecified vein of extremity Chronicity: unspecified Laterality: unspecified laterality Qualified Code(s): I82.409 - Acute embolism and thrombosis of unspecified deep veins of unspecified lower extremity Code(s): I82.409 - Acute embolism and thrombosis of unspecified deep veins of unspecified lower extremity Status: Resolved (12) Hypercholesterolemia: Code(s): E78.00 - Pure hypercholesterolemia, unspecified Status: Chronic (13) Hypertension: Qualifiers: Hypertension type: primary hypertension Qualified Code(s): I10 - Essential (primary) hypertension Code(s): I10 - Essential (primary) hypertension Status: Chronic (14) Hypothyroidism: Qualifiers: Hypothyroidism type: unspecified Qualified Code(s): E03.9 - Hypothyroidism, unspecified Code(s): E03.9 - Hypothyroidism, unspecified Status: Chronic (15) Morbid obesity with BMI of 45.0-49.9, adult: Code(s): E66.01 - Morbid (severe) obesity due to excess calories; Z68.42 - Body mass index [BMI] 45.0-49.9, adult Status: Acute (16) History of infection with vancomycin resistant Enterococcus (VRE): Code(s): Z86.19 - Personal history of other infectious and parasitic diseases Status: Acute Additional Plan 1. Hypotension- resolving: -possibly secondary to dehydration and over-diuresis possibility of also infected decubitus also contributing to this -will continue to hold spironolactone, torsemide and metoprolol; will have to re-evaluate -given patient's low blood pressure at this time even after holding all the medications, we will continue giving her IV normal saline at 100 mL an hour. Will be cautious as patient has a documented history of congestive heart failure as well -Does remain asymptomatic 2. Inf
--- NOTE | 2021-06-29 16:48 | PC.NURSE ---
On 06/29/21, the student, Chris [facility], provided care and completed [facility] documentation on this patient. I have reviewed the student's documentation and agree with the findings.
[2021-06-29 21:56] LABS: Glucose Point of Care 76 mg/dl (65-105)
[2021-06-30] VITALS (7 sets, daily range): BP systolic 92–103; BP diastolic 49–56; PULSE 64–81; RESP 18–20; TEMP 35.7–36.1; O2SAT 99–100
[2021-06-30] MEDS: SODIUM CHLORIDE 0.9% IV 1,000 ML 100 ML IV CONT (01:32)
[2021-06-30] MEDS: LEVOTHYROXINE SODIUM 75 MCG TABLET PO (05:16)
[2021-06-30] MEDS: AZTREONAM 1 GM in DEXTROSE 5% IN WATER 50 ML 100 ML IVPB (05:17)
[2021-06-30 06:07] LABS: Glucose Point of Care 83 mg/dl (65-105)
[2021-06-30 06:39] LABS: Basophils Absolute Auto 0.1 K/mm3 (0.0-0.1); Basophils Percent Auto 0.5 % (0.2-1.2); Eosinophils Absolute Auto 0.5 K/mm3 (0-0.3); Eosinophils Percent Auto 4.1 % (0-4.4); Hematocrit 27.2 % (37.0-47.0); Hemoglobin 8.3 g/dL (12.0-15.0); Immature Granulocyte Percent A 1.6 % (0-0.5); Lymphocytes Percent Auto 8.7 % (18.3-44.2); Mean Corpuscular HGB Conc 30.5 g/dl (32-36); Mean Corpuscular Hemoglobin 30.9 pg (26-34); Mean Corpuscular Volume 101.1 fl (80-100); Mean Platelet Volume 9.5 fl (7.4-10.4); Monocytes Absolute Auto 1.1 K/mm3 (0.1-0.6); Monocytes Percent Auto 8.3 % (2.6-8.5); Neutrophils Absolute Auto 9.7 K/mm3 (1.3-6.7); Neutrophils Percent Auto 76.8 % (45.5-73.1); Nucleated Red Blood Cells Perc 0.2 % (0.0-0.2); Platelet Count Result 308 k/mm3 (150-375); Red Blood Count 2.69 M/mm3 (4.2-5.4); Red Cell Distribution Width 17.6 % (11.5-14.5); White Blood Count 12.6 K/mm3 (4.5-10.0)
[2021-06-30 06:55] LABS: Alanine Aminotransferase 20 U/L (4-35); Albumin Level 2.4 g/dL (3.5-5.1); Alkaline Phosphatase 269 U/L (38-126); Anion Gap 7 mmol/L (8-16); Aspartate Amino Transferase 25 U/L (14-36); Bilirubin,Total 0.5 mg/dL (0.2-1.3); Blood Urea Nitrogen 54 mg/dL (7-17); Calcium 8.1 mg/dL (8.4-10.2); Carbon Dioxide 25 mmol/L (22-30); Chloride 103 mmol/L (98-107); Creatine Kinase < 20 U/L (30-135); Estimated CRCL calculation 35 ml/min; Estimated Glomerular Filt Rate 25; Glucose 88 mg/dL (65-110); Magnesium 1.8 mg/dL (1.6-2.3); Phosphorus 3.5 mg/dL (2.5-4.5); Potassium 4.1 mmol/L (3.4-5.0); Sodium 135 mmol/L (137-145)
[2021-06-30 07:19] LABS: Erythrocyte Sedimentation Rate 69 mm/hr (0-20)
[2021-06-30 08:32] LABS: Glucose Point of Care 72 mg/dl (65-105)
[2021-06-30 08:55] LABS: CRP 12.3 mg/dL (<1.0)
[2021-06-30] MEDS: INSULIN ASPART (*BKC) 100 UNITS/ML SUB-Q ×3 (08:56→17:34)
[2021-06-30] MEDS: busPIRone HCL 5 MG TABLET PO ×2 (08:57→17:34)
[2021-06-30] MEDS: CHOLECALCIFEROL 1,000 UNITS TABLET 2000 UNITS PO (08:57)
[2021-06-30] MEDS: METOPROLOL TARTRATE 50 MG TAB PO ×2 (08:57→22:06)
[2021-06-30] MEDS: allopurinoL 100 MG TABLET PO (08:57)
[2021-06-30] MEDS: ZINC SULFATE 220 MG CAPSULE PO (08:57)
[2021-06-30] MEDS: FAMOTIDINE 10 MG TABLET PO ×2 (08:57→17:34)
[2021-06-30] MEDS: APIXABAN 5 MG TABLET PO ×2 (08:58→22:06)
[2021-06-30] MEDS: LACTULOSE 20 GM/30 ML UDC PO ×2 (08:58→17:34)
[2021-06-30] MEDS: FLUTICASONE PROPIONATE 0.05% NA SPR 16 GM BTL (*BKC) 1 SPRAY NASAL ×2 (08:58→22:06)
[2021-06-30] MEDS: ARTIFICIAL TEARS OPHTH SOLN 15 ML BOTTLE 1 DROP RIGHT EYE ×2 (08:58→17:34)
[2021-06-30] MEDS: MONTELUKAST SODIUM 10 MG TABLET PO (08:58)
[2021-06-30] MEDS: AZELASTINE HCL NASAL 0.1% 137 MCG/SPR 30 ML BTL 1 SPRAY NASAL ×2 (08:58→22:06)
[2021-06-30] MEDS: ESCITALOPRAM OXALATE 5 MG TABLET PO (08:58)
[2021-06-30] MEDS: DOCUSATE SODIUM 100 MG CAPSULE PO ×2 (08:59→17:34)
[2021-06-30] MEDS: FERROUS SULFATE 324 MG TABLET PO (08:59)
[2021-06-30] MEDS: TOLNAFTATE 1% POWDER 45 GM BTL 1 APPLIC TOPICAL ×2 (10:20→22:07)
[2021-06-30] MEDS: SOD HYPOCHLORITE 1/4 STRENGTH 473 ML 1 APPLIC TOPICAL ×2 (10:21→22:07)
[2021-06-30] MEDS: LACTIC ACID 12% LOTION 225 BTL 1 APPLIC TOPICAL (10:21)
[2021-06-30] MEDS: ACETAMINOPHEN 325 MG TABLET 650 MG PO (10:21)
--- NOTE | 2021-06-30 11:32 | PCPTNOTE ---
Patient refused treatment. Patient educated in the importance of participating in therapy to improve strength and mobility. Patient continued to refuse. No reason given for refusal.
[2021-06-30 12:30] LABS: Glucose Point of Care 85 mg/dl (65-105)
--- NOTE | 2021-06-30 14:00 | WPDINFPN2 ---
Progress Note: A&P Assessment and Plan (1) Decubitus ulcer, infected: Qualifiers: Pressure injury stage: stage 2 Qualified Code(s): L89.92 - Pressure ulcer of unspecified site, stage 2; L08.9 - Local infection of the skin and subcutaneous tissue, unspecified Code(s): L89.90 - Pressure ulcer of unspecified site, unspecified stage; L08.9 - Local infection of the skin and subcutaneous tissue, unspecified Status: Acute Assessment and Plan: Decubitus ulcer, right hip REC Augmentin bid x 20 doses. Suggest senior education specialist as outpatient. Ok discharge. Subjective Date/time seen: 06/30/21 14:00 Objective Data Vital Signs Vital Signs: Vital Signs - 24 hr 06/29/21 19:42 06/29/21 20:00 06/29/21 21:28 Temperature 36.0 C L Pulse Rate 83 Respiratory Rate 20 Blood Pressure 102/48 L Pulse Oximetry 99 100 100 06/29/21 21:41 06/30/21 03:56 06/30/21 08:00 Temperature 35.7 C L Pulse Rate 74 81 Respiratory Rate 20 Blood Pressure 103/56 L Pulse Oximetry 99 99 06/30/21 08:57 Temperature Pulse Rate 81 Respiratory Rate Blood Pressure Pulse Oximetry Intake/Output Intake/Output: Intake & Output 06/27/21 06/28/21 06/29/21 06/30/21 23:59 23:59 23:59 23:59 Intake Total 4430 2890 2940 240 Output Total 900 675 700 300 Balance 3530 2215 2240 -60 Meds/Results Medications: Active Medications Generic Name Dose Route Start Last Admin Trade Name Freq PRN Reason Stop Dose Admin Acetaminophen 650 mg 06/26/21 07:48 06/30/21 10:21 Acetaminophen 325 Mg Tablet PO 650 mg Q12H PRN Administration MILD PAIN OR FEVER Hydrocodone Bitart/Acetaminophen 1 tab 06/26/21 07:48 06/26/21 10:12 Hydrocodone/Acetaminophen (*Crx) 5-325 Mg Tablet PO 1 tab Q6H PRN Administration PAIN 4-6 Allopurinol 100 mg 06/26/21 09:00 06/30/21 08:57 Allopurinol 100 Mg Tablet PO 100 mg DAILY ALEJANDRINA Administration Apixaban 5 mg 06/27/21 21:00 06/30/21 08:58 Apixaban 5 Mg Tablet PO 5 mg Q12HR ALEJANDRINA Administration Artificial Tears 1 drop 06/26/21 09:00 06/30/21 08:58 Artificial Tears Ophth Soln 15 Ml Bottle RIGHT EYE 1 drop BID ALEJANDRINA Administration Atorvastatin Calcium 10 mg 06/26/21 21:00 Atorvastatin 10 Mg Tablet PO HS ALEJANDRINA Azelastine HCl 1 spray 06/26/21 21:00 06/30/21 08:58 Azelastine Hcl Nasal 0.1% 137 Mcg/Spr 30 Ml Btl NASAL 1 spray Q12HR ALEJANDRINA Administration Buspirone HCl 5 mg 06/26/21 09:00 06/30/21 08:57 Buspirone Hcl 5 Mg Tablet PO 5 mg BID ALEJANDRINA Administration Dextrose 12.5 gm 06/26/21 07:56 Dextrose 50% 25 Gm/50 Ml Syringe IV PUSH PRN PRN Hypoglycemia Protocol Docusate Sodium 100 mg 06/26/21 09:00 06/30/21 08:59 Docusate Sodium 100 Mg Capsule PO 100 mg BID ALEJANDRINA Administration Escitalopram Oxalate 5 mg 06/26/21 09:00 06/30/21 08:58 Escitalopram Oxalate 5 Mg Tablet PO 5 mg DAILY ALEJANDRINA Administration Famotidine 10 mg 06/26/21 09:00 06/30/21 08:57 Famotidine 10 Mg Tablet PO 10 mg BID ALEJANDRINA Administration Fentanyl 50 mcg 06/28/21 09:00 06/28/21 13:34 Fentanyl (*Crx) 50 Mcg Patch TRANSDERM 50 mcg Q72H ALEJANDRINA Administration Ferrous Sulfate 324 mg 06/26/21 09:00 06/30/21 08:59 Ferrous Sulfate 324 Mg Tablet PO 324 mg DAILY ALEJANDRINA Administration Fluticasone Propionate 1 spray 06/26/21 21:00 06/30/21 08:58 Fluticasone Propionate 0.05% Na Spr 16 Gm Btl (*Bkc) NASAL 1 spray Q12HR ALEJANDRINA Administration Glucagon 1 mg 06/26/21 07:56 Glucagon For Inj 1 Mg Vial IM PRN PRN Hypoglycemia Protocol Glucose 15 gm 06/26/21 07:56 Glucose Oral Gel 15 Gm Of Glucse In 37.5 Gm Tube PO PRN PRN Hypoglycemia Protocol Guaifenesin/Dextromethorphan 10 ml 06/30/21 09:16 Guaifenesin/Dextromethorphan 10 Ml Udc PO Q4H PRN Cough Aztreonam 1 gm/ Dextrose 50 mls @ 100 mls/hr 06/26/21 15:00 06/30/21 05:17
[2021-06-30] MEDS: SODIUM CHLORIDE 0.9% IV 500 ML IV CONT (15:30)
[2021-06-30] MEDS: SODIUM CHLORIDE 0.9% IV 1,000 ML 125 ML IV CONT (15:35)
--- NOTE | 2021-06-30 16:29 | CONS_ITS ---
DATE OF CONSULTATION: 06/30/2021 REASON FOR CONSULTATION: Decubitus ulcer. HISTORY OF PRESENT ILLNESS: 65-year-old female who is a poor historian. She was at [facility] in early May for several days' time apparently for possible UTI along with bleeding from a right decubitus ulcer. The patient to the best of her knowledge scraped her right hip skin against a chair, but cannot provide further details. She returned to the emergency room in [place] on 06/19 with bleeding and Augmentin was started. White count was 13 at that time. She came to this hospital on June 26 and was admitted. She has been given daptomycin and aztreonam. No fever, chills, or sweats here in the hospital. ALLERGIES: CEPHALOSPORINS. SHE TOLERATED THE AUGMENTIN 06/19 UNTIL THE DAY OF ADMISSION WITHOUT DIFFICULTY. OTHER ALLERGIES INCLUDE CLINDAMYCIN, UNKNOWN REACTION. OTHERS NOT PERTINENT. HABITS: No tobacco or alcohol. PRESENT MEDICATIONS: See above. Daptomycin stopped. PAST MEDICAL HISTORY: Chronic renal insufficiency, heart failure, COPD, depression, diabetes, DVT, chronic edema, hyperlipidemia, gout, hypertension, hypothyroidism, PAMELA, cholecystectomy, hysterectomy. REVIEW OF SYSTEMS: Ulcer over the left lateral hip. Again, she cannot provide further details. Otherwise, constitutional, skin, musculoskeletal, GI, negative. PHYSICAL EXAMINATION: GENERAL: Middle-aged female, appears older than her actual age, irritable, massively obese. VITAL SIGNS: Afebrile, 81, 20, 103/56. SKIN: Pale, warm, and dry. EENT: The conjunctivae are normal. LUNGS: Clear to auscultation. CARDIAC: Regular rate and rhythm without murmur or gallop. ABDOMEN: Massively obese. No tenderness elicited. No masses are apparent. : Rooney catheter draining clear yellow urine. EXTREMITIES: Stasis edema. MUSCULOSKELETAL: She has a partial-thickness 2 cm ulcer over the left lateral hip area. Over the right posterolateral hip, she has a 3 cm decubitus ulcer with no tunneling, extends approximately 2 cm deep. Minimal odor. Minimal slough. LABORATORY DATA: White count 12.6, hemoglobin 8.3, platelets 308. Differential normal. BUN 54, creatinine 2.0 similar to previous values, calcium 8.1, alkaline phosphatase high, CRP 12.3, albumin 2.4. RADIOLOGY: Chest CT, atelectasis, no active disease. ASSESSMENT: 1. Decubitus ulcer, probably infected at this time, but without deep space infection clinically. 2. Left hip skin injury, not infected. 3. Morbid obesity. 4. Diabetes. 5. Chronic renal insufficiency. RECOMMENDATIONS: 1. Given her multiple allergies, Augmentin is appropriate, use b.i.d. dosing for renal insufficiency. Continue 10 additional days. 2. Okay for discharge. I suggest a health plan specialist to follow her as an outpatient. 3. 4. Thank you for asking me to see her. JOSE CRUZ M.D. WE[employer]ER NEEDLE [employer]OM WEAVER NEEDLE LOOM D I MT: Johana
[2021-06-30 16:36] LABS: Glucose Point of Care 85 mg/dl (65-105)
[2021-06-30] MEDS: AMOXICILLIN/CLAVULANATE K 500-125 MG TAB 1 TABLET PO (22:06)
[2021-06-30] MEDS: HYDROcodone/acetaminophen (*CRX) 5-325 MG TABLET 1 TAB PO (22:10)
[2021-06-30 23:43] LABS: Glucose Point of Care 124 mg/dl (65-105)
[2021-07-01] VITALS (7 sets, daily range): BP systolic 98–105; BP diastolic 55–59; PULSE 72–79; RESP 16–18; TEMP 35.8–36.6; O2SAT 100
[2021-07-01] MEDS: SODIUM CHLORIDE 0.9% IV 1,000 ML 125 ML IV CONT ×3 (01:28→21:01)
[2021-07-01] MEDS: LEVOTHYROXINE SODIUM 75 MCG TABLET PO (05:21)
[2021-07-01 08:46] LABS: Glucose Point of Care 108 mg/dl (65-105)
[2021-07-01] MEDS: INSULIN ASPART (*BKC) 100 UNITS/ML SUB-Q ×3 (09:23→17:24)
[2021-07-01] MEDS: ACETAMINOPHEN 325 MG TABLET 650 MG PO (09:23)
[2021-07-01] MEDS: ZINC SULFATE 220 MG CAPSULE PO (09:24)
[2021-07-01] MEDS: AMOXICILLIN/CLAVULANATE K 500-125 MG TAB 1 TABLET PO ×2 (09:24→21:05)
[2021-07-01] MEDS: CHOLECALCIFEROL 1,000 UNITS TABLET 2000 UNITS PO (09:24)
[2021-07-01] MEDS: FERROUS SULFATE 324 MG TABLET PO (09:24)
[2021-07-01] MEDS: polyethylene glycoL 3350 17 GM POWD.PACK PO (09:24)
[2021-07-01] MEDS: MONTELUKAST SODIUM 10 MG TABLET PO (09:24)
[2021-07-01] MEDS: LACTULOSE 20 GM/30 ML UDC PO ×2 (09:24→17:25)
[2021-07-01] MEDS: APIXABAN 5 MG TABLET PO ×2 (09:25→21:05)
[2021-07-01] MEDS: METOPROLOL TARTRATE 50 MG TAB PO (09:25)
[2021-07-01] MEDS: FAMOTIDINE 10 MG TABLET PO ×2 (09:25→17:25)
[2021-07-01] MEDS: DOCUSATE SODIUM 100 MG CAPSULE PO ×2 (09:25→17:25)
[2021-07-01] MEDS: ESCITALOPRAM OXALATE 5 MG TABLET PO (09:25)
[2021-07-01] MEDS: allopurinoL 100 MG TABLET PO (09:25)
[2021-07-01] MEDS: ARTIFICIAL TEARS OPHTH SOLN 15 ML BOTTLE 1 DROP RIGHT EYE ×2 (09:25→17:25)
[2021-07-01] MEDS: busPIRone HCL 5 MG TABLET PO ×2 (09:25→17:25)
--- NOTE | 2021-07-01 09:26 | PM.IMPN ---
Progress Note: A&P Assessment and Plan (1) Stage 2 skin ulcer of sacral region: Code(s): L98.429 - Non-pressure chronic ulcer of back with unspecified severity Status: Acute (2) Decubitus ulcer, infected: Qualifiers: Pressure injury stage: stage 2 Qualified Code(s): L89.92 - Pressure ulcer of unspecified site, stage 2; L08.9 - Local infection of the skin and subcutaneous tissue, unspecified Code(s): L89.90 - Pressure ulcer of unspecified site, unspecified stage; L08.9 - Local infection of the skin and subcutaneous tissue, unspecified Status: Acute (3) Asymptomatic bacteriuria: Code(s): R82.71 - Bacteriuria Status: Acute (4) Acute on chronic anemia: Code(s): D64.9 - Anemia, unspecified Status: Chronic (5) Hypotension: Qualifiers: Hypotension type: unspecified hypotension type Qualified Code(s): I95.9 - Hypotension, unspecified Code(s): I95.9 - Hypotension, unspecified Status: Resolved (6) Leukocytosis: Qualifiers: Leukocytosis type: unspecified Qualified Code(s): D72.829 - Elevated white blood cell count, unspecified Code(s): D72.829 - Elevated white blood cell count, unspecified Status: Acute (7) Chronic kidney disease: Qualifiers: Chronic kidney disease stage: stage 2 (mild) Qualified Code(s): N18.2 - Chronic kidney disease, stage 2 (mild) Code(s): N18.9 - Chronic kidney disease, unspecified Status: Acute (8) Congestive heart failure: Qualifiers: Heart failure type: diastolic Heart failure chronicity: chronic Qualified Code(s): I50.32 - Chronic diastolic (congestive) heart failure Code(s): I50.9 - Heart failure, unspecified Status: Chronic (9) Chronic respiratory failure with hypoxia: Code(s): J96.11 - Chronic respiratory failure with hypoxia Status: Acute (10) Morbid obesity: Code(s): E66.01 - Morbid (severe) obesity due to excess calories Status: Acute (11) DVT (deep venous thrombosis): Qualifiers: DVT location: lower extremity Affected thrombotic vein of extremity: unspecified vein of extremity Chronicity: unspecified Laterality: unspecified laterality Qualified Code(s): I82.409 - Acute embolism and thrombosis of unspecified deep veins of unspecified lower extremity Code(s): I82.409 - Acute embolism and thrombosis of unspecified deep veins of unspecified lower extremity Status: Resolved (12) Hypercholesterolemia: Code(s): E78.00 - Pure hypercholesterolemia, unspecified Status: Chronic (13) Hypertension: Qualifiers: Hypertension type: primary hypertension Qualified Code(s): I10 - Essential (primary) hypertension Code(s): I10 - Essential (primary) hypertension Status: Chronic (14) Hypothyroidism: Qualifiers: Hypothyroidism type: unspecified Qualified Code(s): E03.9 - Hypothyroidism, unspecified Code(s): E03.9 - Hypothyroidism, unspecified Status: Chronic (15) Morbid obesity with BMI of 45.0-49.9, adult: Code(s): E66.01 - Morbid (severe) obesity due to excess calories; Z68.42 - Body mass index [BMI] 45.0-49.9, adult Status: Acute (16) History of infection with vancomycin resistant Enterococcus (VRE): Code(s): Z86.19 - Personal history of other infectious and parasitic diseases Status: Acute Additional Plan 1. Hypotension- resolving: -possibly secondary to dehydration and over-diuresis possibility of also infected decubitus also contributing to this - hold spironolactone, torsemide and metoprolol; home blood pressure monitoring. - remain asymptomatic 2. Infected decubitus ulcer with increasing leukocytosis: -increasing leukocytosis could be reflection dehydration however it would be beneficial to continue Abx for the patient at this time. -wound cultures have resulted positive for Proteus mirabilis. Sensit
[2021-07-01] MEDS: FLUTICASONE PROPIONATE 0.05% NA SPR 16 GM BTL (*BKC) 1 SPRAY NASAL (09:28)
[2021-07-01] MEDS: AZELASTINE HCL NASAL 0.1% 137 MCG/SPR 30 ML BTL 1 SPRAY NASAL (09:28)
[2021-07-01 12:08] LABS: Glucose Point of Care 134 mg/dl (65-105)
--- NOTE | 2021-07-01 12:49 | PM.IMPN ---
Progress Note: A&P Assessment and Plan (1) Stage 2 skin ulcer of sacral region: Code(s): L98.429 - Non-pressure chronic ulcer of back with unspecified severity Status: Acute Assessment and Plan: Patient was treated with IV antibiotic and now switched to Augmentin a tablet twice daily per ID recommendations. Patient will be discharged after her mental status improved. She appears to be drowsy and lethargic this morning. We will monitor her throughout the day with neuro checks. She is nonfocal. (2) Decubitus ulcer, infected: Qualifiers: Pressure injury stage: stage 2 Qualified Code(s): L89.92 - Pressure ulcer of unspecified site, stage 2; L08.9 - Local infection of the skin and subcutaneous tissue, unspecified Code(s): L89.90 - Pressure ulcer of unspecified site, unspecified stage; L08.9 - Local infection of the skin and subcutaneous tissue, unspecified Status: Acute Assessment and Plan: Continue oral antibiotic and local wound care. (3) Asymptomatic bacteriuria: Code(s): R82.71 - Bacteriuria Status: Acute Assessment and Plan: Currently on Augmentin twice daily of 110. May repeat urinalysis if symptoms then below. (4) Acute on chronic anemia: Code(s): D64.9 - Anemia, unspecified Status: Chronic Assessment and Plan: macrocytic and normal make. Hemoglobin stable in the 8 range. Check B12 and folate levels. Jodie may be an element of anemia of chronic disease in the setting of chronic kidney disease. (5) Hypotension: Qualifiers: Hypotension type: unspecified hypotension type Qualified Code(s): I95.9 - Hypotension, unspecified Code(s): I95.9 - Hypotension, unspecified Status: Resolved Assessment and Plan: Blood pressure is currently in the 90 -100 range. We will stop the metoprolol. torsemide and spironolactone had been previously discontinued. (6) Leukocytosis: Qualifiers: Leukocytosis type: unspecified Qualified Code(s): D72.829 - Elevated white blood cell count, unspecified Code(s): D72.829 - Elevated white blood cell count, unspecified Status: Acute (7) Chronic kidney disease: Qualifiers: Chronic kidney disease stage: stage 2 (mild) Qualified Code(s): N18.2 - Chronic kidney disease, stage 2 (mild) Code(s): N18.9 - Chronic kidney disease, unspecified Status: Acute Assessment and Plan: Baseline kidney function is unknown. However creatinine has been in the 2s as early as 2018. Most recently creatinine of 2 with a calculated GFR of 25. Patient has stage IV CKD, Likely secondary to diabetes, hypertension, and compounded by her morbid obesity.. It is likely that she will require dialysis in her lifetime. Nephrology follow-up as an outpatient. Preserved a non dominant arm for future access. Avoid PICC lines. Avoid blood draws. (8) Congestive heart failure: Qualifiers: Heart failure type: diastolic Heart failure chronicity: chronic Qualified Code(s): I50.32 - Chronic diastolic (congestive) heart failure Code(s): I50.9 - Heart failure, unspecified Status: Chronic Assessment and Plan: Currently on oxygen at 3 L per nasal cannula. Due to hypotension cardioprotective medication including metoprolol and diuretics have been held. (9) Chronic respiratory failure with hypoxia: Code(s): J96.11 - Chronic respiratory failure with hypoxia Status: Acute Assessment and Plan: Continue oxygen supplementation. (10) Morbid obesity: Code(s): E66.01 - Morbid (severe) obesity due to excess calories Status: Acute Assessment and Plan: Calorie restricted diet. Due to morbid state, activity is very limited. (11) DVT (deep venous thrombosis): Qualifiers: DVT location: lower extremity Affected thrombotic vein of extremity: unspecified vein of extremity Chronicity
[2021-07-01] MEDS: TOLNAFTATE 1% POWDER 45 GM BTL 1 APPLIC TOPICAL (15:40)
[2021-07-01] MEDS: fentaNYL (*CRX) 50 MCG PATCH TRANSDERM (15:40)
[2021-07-01] MEDS: SOD HYPOCHLORITE 1/4 STRENGTH 473 ML 1 APPLIC TOPICAL (15:40)
[2021-07-01] MEDS: LACTIC ACID 12% LOTION 225 BTL 1 APPLIC TOPICAL (15:41)
[2021-07-01 16:16] LABS: Glucose Point of Care 143 mg/dl (65-105)
[2021-07-01 22:17] LABS: Glucose Point of Care 148 mg/dl (65-105)
[2021-07-02] VITALS (7 sets, daily range): BP systolic 102–122; BP diastolic 69–71; PULSE 90–105; RESP 18–22; TEMP 36.1–36.3; O2SAT 86–100
--- NOTE | 2021-07-02 01:57 | PC.NURSE ---
Daylight Savings Time For Daylight Savings Time Ending in the Fall - Clocks are moved back. For Daylight Savings Time Beginning in the Spring - Clocks are moved ahead. For [facility], the time of change occurs at 0200 hrs. Time is taken from the bistro server. This entry on the patient's chart recognizes the change in time reflected during documentation. Example: 2 entries for vital signs may be charted for 0200 hrs.
[2021-07-02] MEDS: MORPHINE SULFATE (*CRX) 4 MG/ML INJ IV PUSH (05:05)
[2021-07-02] MEDS: LEVOTHYROXINE SODIUM 75 MCG TABLET PO (05:46)
[2021-07-02] MEDS: SOD HYPOCHLORITE 1/4 STRENGTH 473 ML 1 APPLIC TOPICAL ×2 (05:47→08:12)
[2021-07-02] MEDS: TOLNAFTATE 1% POWDER 45 GM BTL 1 APPLIC TOPICAL ×3 (05:47→20:36)
[2021-07-02] MEDS: SODIUM CHLORIDE 0.9% IV 1,000 ML 125 ML IV CONT ×2 (06:36→14:46)
[2021-07-02 07:49] LABS: Glucose Point of Care 152 mg/dl (65-105)
[2021-07-02] MEDS: ARTIFICIAL TEARS OPHTH SOLN 15 ML BOTTLE 1 DROP RIGHT EYE ×2 (08:11→16:53)
[2021-07-02] MEDS: busPIRone HCL 5 MG TABLET PO ×2 (08:11→16:53)
[2021-07-02] MEDS: polyethylene glycoL 3350 17 GM POWD.PACK PO (08:11)
[2021-07-02] MEDS: CHOLECALCIFEROL 1,000 UNITS TABLET 2000 UNITS PO (08:11)
[2021-07-02] MEDS: FAMOTIDINE 10 MG TABLET PO ×2 (08:11→16:53)
[2021-07-02] MEDS: FERROUS SULFATE 324 MG TABLET PO (08:11)
[2021-07-02] MEDS: LACTULOSE 20 GM/30 ML UDC PO (08:11)
[2021-07-02] MEDS: APIXABAN 5 MG TABLET PO ×2 (08:11→20:36)
[2021-07-02] MEDS: ESCITALOPRAM OXALATE 5 MG TABLET PO (08:11)
[2021-07-02] MEDS: AMOXICILLIN/CLAVULANATE K 500-125 MG TAB 1 TABLET PO ×2 (08:12→20:35)
[2021-07-02] MEDS: MONTELUKAST SODIUM 10 MG TABLET PO (08:12)
[2021-07-02] MEDS: FLUTICASONE PROPIONATE 0.05% NA SPR 16 GM BTL (*BKC) 1 SPRAY NASAL (08:12)
[2021-07-02] MEDS: AZELASTINE HCL NASAL 0.1% 137 MCG/SPR 30 ML BTL 1 SPRAY NASAL (08:12)
[2021-07-02] MEDS: DOCUSATE SODIUM 100 MG CAPSULE PO ×2 (08:12→16:53)
[2021-07-02] MEDS: allopurinoL 100 MG TABLET PO (08:12)
[2021-07-02] MEDS: LACTIC ACID 12% LOTION 225 BTL 1 APPLIC TOPICAL (08:12)
[2021-07-02] MEDS: ZINC SULFATE 220 MG CAPSULE PO (08:12)
[2021-07-02] MEDS: INSULIN ASPART (*BKC) 100 UNITS/ML SUB-Q ×3 (08:13→17:15)
[2021-07-02 09:21] LABS: Estimated CRCL calculation 38 ml/min; Estimated Glomerular Filt Rate 28
[2021-07-02 12:33] LABS: Glucose Point of Care 158 mg/dl (65-105)
[2021-07-02 14:38] LABS: Vitamin B12 > 1000.0 pg/mL (239-931)
[2021-07-02 17:01] LABS: Glucose Point of Care 165 mg/dl (65-105)
--- NOTE | 2021-07-02 18:02 | PM.IMPN ---
Progress Note: A&P Assessment and Plan (1) Stage 2 skin ulcer of sacral region: Code(s): L98.429 - Non-pressure chronic ulcer of back with unspecified severity Status: Acute Assessment and Plan: Patient was treated with IV antibiotic and now switched to Augmentin a tablet twice daily per ID recommendations. Patient will be discharged after her mental status improved. She appears to be drowsy and lethargic this morning. We will monitor her throughout the day with neuro checks. She is nonfocal. (2) Decubitus ulcer, infected: Qualifiers: Pressure injury stage: stage 2 Qualified Code(s): L89.92 - Pressure ulcer of unspecified site, stage 2; L08.9 - Local infection of the skin and subcutaneous tissue, unspecified Code(s): L89.90 - Pressure ulcer of unspecified site, unspecified stage; L08.9 - Local infection of the skin and subcutaneous tissue, unspecified Status: Acute Assessment and Plan: Continue oral antibiotic and local wound care. (3) Asymptomatic bacteriuria: Code(s): R82.71 - Bacteriuria Status: Acute Assessment and Plan: Currently on augmentin twice daily for 10 days. May repeat urinalysis 7 days after completion of treatment. (4) Acute on chronic anemia: Code(s): D64.9 - Anemia, unspecified Status: Chronic Assessment and Plan: macrocytic and normal make. Hemoglobin stable in the 8 range. Check B12 and folate levels. Jodie may be an element of anemia of chronic disease in the setting of chronic kidney disease. (5) Hypotension: Qualifiers: Hypotension type: unspecified hypotension type Qualified Code(s): I95.9 - Hypotension, unspecified Code(s): I95.9 - Hypotension, unspecified Status: Resolved Assessment and Plan: Blood pressure is currently in the 102/69-122/71 range. We will continue to hold metoprolol, torsemide and spironolactone. (6) Leukocytosis: Qualifiers: Leukocytosis type: unspecified Qualified Code(s): D72.829 - Elevated white blood cell count, unspecified Code(s): D72.829 - Elevated white blood cell count, unspecified Status: Acute (7) Chronic kidney disease: Qualifiers: Chronic kidney disease stage: stage 2 (mild) Qualified Code(s): N18.2 - Chronic kidney disease, stage 2 (mild) Code(s): N18.9 - Chronic kidney disease, unspecified Status: Acute Assessment and Plan: Baseline kidney function is unknown. However creatinine has been in the 2s as early as 2018. Most recently creatinine of 2 with a calculated GFR of 25. Patient has stage IV CKD, Likely secondary to diabetes, hypertension, and compounded by her morbid obesity.. It is likely that she will require dialysis in her lifetime. Nephrology follow-up as an outpatient. Preserved a non dominant arm for future access. Place limb alert sign at bedside. Avoid PICC lines. Avoid blood draws, Purple not lines and PICC line to preserve upper extremity vasculature for future dialysis needs. This is an evidence based guidelines. (8) Congestive heart failure: Qualifiers: Heart failure type: diastolic Heart failure chronicity: chronic Qualified Code(s): I50.32 - Chronic diastolic (congestive) heart failure Code(s): I50.9 - Heart failure, unspecified Status: Chronic Assessment and Plan: Currently on oxygen at 3 L per nasal cannula. Due to hypotension cardioprotective medication including metoprolol and diuretics have been held. (9) Chronic respiratory failure with hypoxia: Code(s): J96.11 - Chronic respiratory failure with hypoxia Status: Acute Assessment and Plan: Continue oxygen supplementation. (10) Morbid obesity: Code(s): E66.01 - Morbid (severe) obesity due to excess calories Status: Acute Assessment and Plan: Calorie restricted diet. Due to morbid state, activity is very limited.
[2021-07-02] MEDS: INSULIN GLARGINE (*BKC) 100 UNITS/ML 20 UNITS SUB-Q (20:33)
[2021-07-02 21:13] LABS: Glucose Point of Care 161 mg/dl (65-105)
[2021-07-03 06:00] VITALS: BP 118/53; PULSE 87; RESP 18; TEMP 35.9; O2SAT 94
[2021-07-03] MEDS: LEVOTHYROXINE SODIUM 75 MCG TABLET PO (06:08)
[2021-07-03] MEDS: SODIUM CHLORIDE 0.9% IV 1,000 ML 125 ML IV CONT (06:11)
--- NOTE | 2021-07-03 06:49 | PC.NURSE ---
at 2039 nurse attempted to do dressing changes on Mrs. Uribe' pressure ulcers. pt refused dressing change stating that she is tired at this time. Nurse stated that she will be back to do dressing change in a few hours. at 2229 nurse attempted to do dressing change. pt refused dressing change a second time. at this time nurse states she should do dressing change while she is in the room to do so. Pt stated she wishes nurse to leave at this time.
[2021-07-03 06:55] LABS: Basophils Absolute Auto 0.1 K/mm3 (0.0-0.1); Basophils Percent Auto 0.9 % (0.2-1.2); Eosinophils Absolute Auto 0.3 K/mm3 (0-0.3); Eosinophils Percent Auto 2.3 % (0-4.4); Hematocrit 30.3 % (37.0-47.0); Immature Granulocyte Absolute 0.45 K/mm3 (0.00-0.031); Immature Granulocyte Percent A 3.7 % (0-0.5); Lymphocytes Absolute Auto 1.45 K/mm3 (0.9-3.2); Lymphocytes Percent Auto 11.8 % (18.3-44.2); Mean Corpuscular HGB Conc 29.7 g/dl (32-36); Mean Corpuscular Hemoglobin 30.4 pg (26-34); Mean Corpuscular Volume 102.4 fl (80-100); Mean Platelet Volume 9.4 fl (7.4-10.4); Monocytes Percent Auto 7.7 % (2.6-8.5); Neutrophils Percent Auto 73.6 % (45.5-73.1); Nucleated Red Blood Cells Perc 0.3 % (0.0-0.2); Platelet Count Result 331 k/mm3 (150-375); Red Blood Count 2.96 M/mm3 (4.2-5.4); Red Cell Distribution Width 18.7 % (11.5-14.5); White Blood Count 12.3 K/mm3 (4.5-10.0)
[2021-07-03 07:03] LABS: Anion Gap 13 mmol/L (8-16); Blood Urea Nitrogen 53 mg/dL (7-17); Calcium 8.1 mg/dL (8.4-10.2); Carbon Dioxide 17 mmol/L (22-30); Chloride 107 mmol/L (98-107); Estimated CRCL calculation 41 ml/min; Estimated Glomerular Filt Rate 30; Glucose 177 mg/dL (65-110); Potassium 4.2 mmol/L (3.4-5.0); Sodium 137 mmol/L (137-145)
[2021-07-03 07:43] LABS: Platelet Estimate Adequate (Adequate)
[2021-07-03 07:44] LABS: Anisocytosis 1+ (NORMAL); Hypochromasia 1+ (NORMAL); Stomatocytes 1+ (NORMAL)
[2021-07-03 08:29] LABS: Glucose Point of Care 160 mg/dl (65-105)
[2021-07-03] MEDS: FERROUS SULFATE 324 MG TABLET PO (08:43)
[2021-07-03] MEDS: INSULIN ASPART (*BKC) 100 UNITS/ML SUB-Q ×2 (08:43→17:46)
[2021-07-03] MEDS: CHOLECALCIFEROL 1,000 UNITS TABLET 2000 UNITS PO (08:43)
[2021-07-03] MEDS: APIXABAN 5 MG TABLET PO ×2 (08:44→21:55)
[2021-07-03] MEDS: AMOXICILLIN/CLAVULANATE K 500-125 MG TAB 1 TABLET PO ×2 (08:44→21:56)
[2021-07-03] MEDS: MONTELUKAST SODIUM 10 MG TABLET PO (08:44)
[2021-07-03] MEDS: allopurinoL 100 MG TABLET PO (08:44)
[2021-07-03] MEDS: FAMOTIDINE 10 MG TABLET PO ×2 (08:44→17:44)
[2021-07-03] MEDS: busPIRone HCL 5 MG TABLET PO ×2 (08:44→17:44)
[2021-07-03] MEDS: ESCITALOPRAM OXALATE 5 MG TABLET PO (08:44)
[2021-07-03] MEDS: LACTULOSE 20 GM/30 ML UDC PO ×2 (08:44→17:45)
[2021-07-03] MEDS: ZINC SULFATE 220 MG CAPSULE PO (08:44)
[2021-07-03] MEDS: AZELASTINE HCL NASAL 0.1% 137 MCG/SPR 30 ML BTL 1 SPRAY NASAL ×2 (08:46→21:00)
[2021-07-03] MEDS: FLUTICASONE PROPIONATE 0.05% NA SPR 16 GM BTL (*BKC) 1 SPRAY NASAL ×2 (08:46→21:00)
[2021-07-03] MEDS: ARTIFICIAL TEARS OPHTH SOLN 15 ML BOTTLE 1 DROP RIGHT EYE ×2 (08:46→17:45)
[2021-07-03] MEDS: DOCUSATE SODIUM 100 MG CAPSULE PO ×2 (08:47→17:44)
[2021-07-03] MEDS: polyethylene glycoL 3350 17 GM POWD.PACK PO (08:47)
[2021-07-03 09:39] LABS: Rapid Plasma Reagin Non-Reactive (NonReactive)
[2021-07-03] MEDS: TOLNAFTATE 1% POWDER 45 GM BTL 1 APPLIC TOPICAL ×2 (11:33→21:56)
[2021-07-03] MEDS: LACTIC ACID 12% LOTION 225 BTL 1 APPLIC TOPICAL (11:34)
[2021-07-03] MEDS: SOD HYPOCHLORITE 1/4 STRENGTH 473 ML 1 APPLIC TOPICAL ×2 (11:35→21:57)
[2021-07-03 11:45] VITALS: O2SAT 94
[2021-07-03 12:01] LABS: Glucose Point of Care 187 mg/dl (65-105)
[2021-07-03 14:00] VITALS: BP 146/88; PULSE 98; RESP 16; TEMP 35.8; O2SAT 74
--- NOTE | 2021-07-03 15:29 | P.PNIM_ITS ---
Progress Note: A&P Assessment and Plan (1) Stage 2 skin ulcer of sacral region: Code(s): L98.429 - Non-pressure chronic ulcer of back with unspecified severity Status: Acute Assessment and Plan: Patient was treated with IV antibiotic and now switched to Augmentin a tablet twice daily per ID recommendations. Patient will be discharged after her mental status improved. She appears to be drowsy and lethargic this morning. We will monitor her throughout the day with neuro checks. She is nonfocal. (2) Decubitus ulcer, infected: Qualifiers: Pressure injury stage: stage 2 Qualified Code(s): L89.92 - Pressure ulcer of unspecified site, stage 2; L08.9 - Local infection of the skin and subcutaneous tissue, unspecified Code(s): L89.90 - Pressure ulcer of unspecified site, unspecified stage; L08.9 - Local infection of the skin and subcutaneous tissue, unspecified Status: Acute Assessment and Plan: Continue oral antibiotic and local wound care. (3) Asymptomatic bacteriuria: Code(s): R82.71 - Bacteriuria Status: Acute Assessment and Plan: Currently on augmentin twice daily for 10 days. May repeat urinalysis 7 days after completion of treatment. (4) Acute on chronic anemia: Code(s): D64.9 - Anemia, unspecified Status: Chronic Assessment and Plan: macrocytic and normal make. Hemoglobin stable in the 8 range. Check B12 and folate levels. Jodie may be an element of anemia of chronic disease in the setting of chronic kidney disease. (5) Hypotension: Qualifiers: Hypotension type: unspecified hypotension type Qualified Code(s): I95.9 - Hypotension, unspecified Code(s): I95.9 - Hypotension, unspecified Status: Resolved Assessment and Plan: Blood pressure is currently in the 102/69-122/71 range. We will continue to hold metoprolol, torsemide and spironolactone. (6) Leukocytosis: Qualifiers: Leukocytosis type: unspecified Qualified Code(s): D72.829 - Elevated white blood cell count, unspecified Code(s): D72.829 - Elevated white blood cell count, unspecified Status: Acute (7) Chronic kidney disease: Qualifiers: Chronic kidney disease stage: stage 2 (mild) Qualified Code(s): N18.2 - Chronic kidney disease, stage 2 (mild) Code(s): N18.9 - Chronic kidney disease, unspecified Status: Acute Assessment and Plan: Baseline kidney function is unknown. However creatinine has been in the 2s as early as 2018. Most recently creatinine of 2 with a calculated GFR of 25. Patient has stage IV CKD, Likely secondary to diabetes, hypertension, and compounded by her morbid obesity.. It is likely that she will require dialysis in her lifetime. Nephrology follow-up as an outpatient. Preserved a non dominant arm for future access. Place limb alert sign at bedside. Avoid PICC lines. Avoid blood draws, Purple not lines and PICC line to preserve upper extremity vasculature for future dialysis needs. This is an evidence based guidelines. (8) Congestive heart failure: Qualifiers: Heart failure type: diastolic Heart failure chronicity: chronic Qualified Code(s): I50.32 - Chronic diastolic (congestive) heart failure Code(s): I50.9 - Heart failure, unspecified Status: Chronic Assessment and Plan: Currently on oxygen at 3 L per nasal cannula. Due to hypotension cardioprotective medication including metoprolol and diuretics have been held. (9) Chronic respiratory failure with hypoxia: Code(s): J96.11 - Chronic respiratory failur
--- NOTE | 2021-07-03 16:10 | PCPTNOTE ---
Attempted to see pt for PT session this afternoon. Pt adamantly declined participation but did not give a reason. Pt just repeatedly states Leave me alone and Get out . Therapist educated pt on the importance of therapy and benefits of participating in PT during hospitalization. Pt continued to decline. Will check back later as schedule allows.
[2021-07-03 16:16] LABS: Glucose Point of Care 170 mg/dl (65-105)
--- NOTE | 2021-07-03 16:43 | WPDNEURCNPN ---
Assessment and Plan Additional Plan metabolic encephalopathy multifactorial in origin with the possibility of underlying dementia CT scan of the head negative for the bleed or major space occupying lesion treatment will be continued as such Consult date: 07/03/21 HPI: Shnate Uribe is a 65 year old female admitted to the hospital for the complaints of bleeding for the right hip wound in addition to the ongoing history of 1. Morbid obesity 2. COPD on 4L of oxygen 3. Recurrent DVTs on Eliquis 4. Obstructive sleep apnea and 5. Decubitus ulcer 6. Admitted for leukocytosis with necrotic decubitus ulcer for which she received the IV antibiotics Review of Systems Review of Systems: All systems reviewed & are unremarkable except as noted in HPI and below PMFSH Past Medical History Medical History Chronic kidney disease Congestive heart failure COPD (chronic obstructive pulmonary disease) Depression Diabetes DVT (deep venous thrombosis) Gout Hypercholesterolemia Hypertension Hypothyroidism Morbid obesity Obstructive sleep apnea Pulmonary embolism Surgical History Surgical History History of cholecystectomy History of hysterectomy Family History Family History Other No pertinent family history Social History Social History Social History: Lives at [facility] for the past 3 years. Smoking status: Never smoker Alcohol intake: never Substance use: never Living arrangements: pen[facility] Gender identity (if verbalized by the patient): Female Spiritual care concerns: No Meds Home Medications and Allergies Home Medications Medication Instructions Recorded Confirmed Type acetaminophen 650 mg PO Q6H PRN 06/26/21 06/26/21 History allopurinol 100 mg PO DAILY 06/26/21 06/26/21 History amoxicillin-pot clavulanate 1 tablet PO Q12H 06/26/21 06/26/21 History [Augmentin] apixaban [Eliquis] 5 mg PO Q12H 06/26/21 06/26/21 History ascorbic acid (vitamin C) 500 mg PO BID 06/26/21 06/26/21 History atorvastatin 10 mg PO QPM 06/26/21 06/26/21 History azelastine-fluticasone 1 spray INTRANASAL BID 06/26/21 06/26/21 History bisacodyl 10 mg PO DAILY PRN 06/26/21 06/26/21 History buspirone 5 mg PO Q12H 06/26/21 06/26/21 History cholecalciferol (vitamin D3) 50 mcg PO DAILY 06/26/21 06/26/21 History collagenase clostridium histo. 1 applic TOPICAL DAILY 06/26/21 06/26/21 History [Santyl] cyclobenzaprine 10 mg PO Q12H 06/26/21 06/26/21 History dextromethorphan-guaifenesin 1 tablet PO Q12H PRN 06/26/21 06/26/21 History docusate sodium 100 mg PO BID 06/26/21 06/26/21 History escitalopram oxalate 5 mg PO DAILY 06/26/21 06/26/21 History famotidine 10 mg PO Q12H 06/26/21 06/26/21 History fentanyl 1 patch TRANSDERMAL Q72H 06/26/21 06/26/21 History ferrous sulfate 325 mg PO DAILY 06/26/21 06/26/21 History gentamicin 1 applic TOPICAL DAILY 06/26/21 06/26/21 History guaifenesin 200 mg PO Q8H PRN 06/26/21 06/26/21 History hydrocodone-acetaminophen 1 tablet PO Q6H PRN 06/26/21 06/26/21 History hydrocortisone See Rx Instructions .ROUTE 06/26/21 06/26/21 History .COMPLEX PRN insulin glargine [Lantus Solostar 22 unit SUBCUT Q12H 06/26/21 06/26/21 History U-100 Insulin] insulin lispro [Humalog KwikPen 14 unit SUBCUT TID 06/26/21 06/26/21 History Insulin] lactulose 20 g PO BID 06/26/21 06/26/21 History levothyroxine 75 mcg PO DAILY 06/26/21 06/26/21 History linaclotide [Linzess] 145 mcg PO DAILY 06/26/21 06/26/21 History metoprolol tartrate 50 mg PO Q12H 06/26/21 06/26/21 History montelukast 10 mg PO DAILY 06/26/21 06/26/21 History multivit with min-folic acid 1 tablet PO DAILY 06/26/21 06/26/21 History [Adult One Daily Multivitamin] ondansetron HCl [Zofran] 4 mg PO Q6H PRN 06/26/21 06/26/21 History polyethylene glycol
[2021-07-03 18:11] LABS: Add Urine Microscopic? YES; Appearance Urine Cloudy (Clear); Bilirubin Urine Negative (Negative); Blood Urine 3+ (Negative); Budding Yeast Urine Present /hpf; Color Urine Yellow (Yellow); Glucose Urine UA 1+ mg/dL (Negative); Ketones Urine Trace mg/dL (Negative); Leukocyte Esterase Ur 3+ LEU/UL (NEGATIVE); Mucus Urine Rare /lpf; Nitrate Urine Negative (Negative); Protein Urine 2+ mg/dL (Negative); RBC Urine >75 /hpf (0-2); Specific Grav Ur 1.016 (1.001-1.035); Squamous Epithelial Cell Urine Occasional /hpf (Few); Urobilinogen Urine Negative mg/dL (<2.0); WBC Urine >75 /hpf (0-3)
[2021-07-03 20:00] VITALS: O2SAT 98
[2021-07-03 21:48] VITALS: BP 122/64; PULSE 133; RESP 18; TEMP 36.8; O2SAT 100
[2021-07-03 22:07] VITALS: PULSE 99; RESP 18; O2SAT 95
[2021-07-03] MEDS: INSULIN GLARGINE (*BKC) 100 UNITS/ML 20 UNITS SUB-Q (22:28)
[2021-07-03 22:57] LABS: Glucose Point of Care 146 mg/dl (65-105)
[2021-07-04] MEDS: SODIUM CHLORIDE 0.9% IV 1,000 ML 125 ML IV CONT (05:06)
[2021-07-04] MEDS: LEVOTHYROXINE SODIUM 75 MCG TABLET PO (05:42)
[2021-07-04 06:00] VITALS: BP 117/67; PULSE 129; RESP 18; TEMP 36.2; O2SAT 100
[2021-07-04 06:31] LABS: Basophils Absolute Auto 0.1 K/mm3 (0.0-0.1); Basophils Percent Auto 0.7 % (0.2-1.2); Eosinophils Absolute Auto 0.5 K/mm3 (0-0.3); Eosinophils Percent Auto 4.4 % (0-4.4); Hematocrit 29.9 % (37.0-47.0); Hemoglobin 8.9 g/dL (12.0-15.0); Immature Granulocyte Absolute 0.25 K/mm3 (0.00-0.031); Immature Granulocyte Percent A 2.3 % (0-0.5); Lymphocytes Absolute Auto 1.39 K/mm3 (0.9-3.2); Mean Corpuscular HGB Conc 29.8 g/dl (32-36); Mean Corpuscular Hemoglobin 30.6 pg (26-34); Mean Corpuscular Volume 102.7 fl (80-100); Mean Platelet Volume 9.5 fl (7.4-10.4); Monocytes Absolute Auto 0.8 K/mm3 (0.1-0.6); Monocytes Percent Auto 7.8 % (2.6-8.5); Neutrophils Absolute Auto 7.7 K/mm3 (1.3-6.7); Neutrophils Percent Auto 71.8 % (45.5-73.1); Nucleated Red Blood Cells Perc 0.4 % (0.0-0.2); Platelet Count Result 313 k/mm3 (150-375); Red Blood Count 2.91 M/mm3 (4.2-5.4); Red Cell Distribution Width 19.3 % (11.5-14.5); White Blood Count 10.7 K/mm3 (4.5-10.0)
[2021-07-04 06:47] LABS: Anion Gap 11 mmol/L (8-16); Blood Urea Nitrogen 48 mg/dL (7-17); Calcium 8.4 mg/dL (8.4-10.2); Carbon Dioxide 18 mmol/L (22-30); Chloride 109 mmol/L (98-107); Estimated CRCL calculation 46 ml/min; Estimated Glomerular Filt Rate 35; Glucose 124 mg/dL (65-110); Potassium 4.5 mmol/L (3.4-5.0); Sodium 138 mmol/L (137-145)
[2021-07-04 07:57] LABS: Glucose Point of Care 122 mg/dl (65-105)
[2021-07-04 08:00] VITALS: O2SAT 100
[2021-07-04] MEDS: INSULIN ASPART (*BKC) 100 UNITS/ML SUB-Q (09:02)
[2021-07-04] MEDS: polyethylene glycoL 3350 17 GM POWD.PACK PO (09:04)
[2021-07-04] MEDS: MONTELUKAST SODIUM 10 MG TABLET PO (09:05)
[2021-07-04] MEDS: DOCUSATE SODIUM 100 MG CAPSULE PO (09:05)
[2021-07-04] MEDS: CHOLECALCIFEROL 1,000 UNITS TABLET 2000 UNITS PO (09:05)
[2021-07-04] MEDS: FAMOTIDINE 10 MG TABLET PO (09:06)
[2021-07-04] MEDS: FERROUS SULFATE 324 MG TABLET PO (09:06)
[2021-07-04] MEDS: AMOXICILLIN/CLAVULANATE K 500-125 MG TAB 1 TABLET PO (09:06)
[2021-07-04] MEDS: ESCITALOPRAM OXALATE 5 MG TABLET PO (09:06)
[2021-07-04] MEDS: allopurinoL 100 MG TABLET PO (09:06)
[2021-07-04] MEDS: busPIRone HCL 5 MG TABLET PO (09:06)
[2021-07-04] MEDS: ZINC SULFATE 220 MG CAPSULE PO (09:06)
[2021-07-04] MEDS: APIXABAN 5 MG TABLET PO (09:06)
[2021-07-04] MEDS: AZELASTINE HCL NASAL 0.1% 137 MCG/SPR 30 ML BTL 1 SPRAY NASAL (09:07)
[2021-07-04] MEDS: FLUTICASONE PROPIONATE 0.05% NA SPR 16 GM BTL (*BKC) 1 SPRAY NASAL (09:07)
[2021-07-04] MEDS: ARTIFICIAL TEARS OPHTH SOLN 15 ML BOTTLE 1 DROP RIGHT EYE (09:07)
[2021-07-04] MEDS: fentaNYL (*CRX) 50 MCG PATCH TRANSDERM (09:34)
[2021-07-04 10:58] VITALS: O2SAT 98
[2021-07-04 11:54] LABS: Glucose Point of Care 112 mg/dl (65-105)
--- NOTE | 2021-07-04 12:12 | PM.IMPN ---
Progress Note: A&P Assessment and Plan (1) Stage 2 skin ulcer of sacral region: Code(s): L98.429 - Non-pressure chronic ulcer of back with unspecified severity Status: Acute Assessment and Plan: Continue to Augmentin a tablet twice daily per ID recommendations. Patient will be discharged after her mental status improved. She appears more awake chordoma alert. She is more interactive. (2) Decubitus ulcer, infected: Qualifiers: Pressure injury stage: stage 2 Qualified Code(s): L89.92 - Pressure ulcer of unspecified site, stage 2; L08.9 - Local infection of the skin and subcutaneous tissue, unspecified Code(s): L89.90 - Pressure ulcer of unspecified site, unspecified stage; L08.9 - Local infection of the skin and subcutaneous tissue, unspecified Status: Acute Assessment and Plan: Continue oral antibiotic and local wound care. (3) Asymptomatic bacteriuria: Code(s): R82.71 - Bacteriuria Status: Acute Assessment and Plan: Currently on augmentin twice daily for 10 days. May repeat urinalysis 7 days after completion of treatment. (4) Acute on chronic anemia: Code(s): D64.9 - Anemia, unspecified Status: Chronic Assessment and Plan: macrocytic and normal make. Hemoglobin stable in the 8 range. Check B12 and folate levels. Jodie may be an element of anemia of chronic disease in the setting of chronic kidney disease. (5) Hypotension: Qualifiers: Hypotension type: unspecified hypotension type Qualified Code(s): I95.9 - Hypotension, unspecified Code(s): I95.9 - Hypotension, unspecified Status: Resolved Assessment and Plan: Blood pressure is currently in the 102/69-122/71 range. We will continue to hold metoprolol, torsemide and spironolactone. (6) Leukocytosis: Qualifiers: Leukocytosis type: unspecified Qualified Code(s): D72.829 - Elevated white blood cell count, unspecified Code(s): D72.829 - Elevated white blood cell count, unspecified Status: Acute (7) Chronic kidney disease: Qualifiers: Chronic kidney disease stage: stage 2 (mild) Qualified Code(s): N18.2 - Chronic kidney disease, stage 2 (mild) Code(s): N18.9 - Chronic kidney disease, unspecified Status: Acute Assessment and Plan: Baseline kidney function is unknown. However creatinine has been in the 2s as early as 2018. Most recently creatinine of 2 with a calculated GFR of 25. Patient has stage IV CKD, Likely secondary to diabetes, hypertension, and compounded by her morbid obesity.. It is likely that she will require dialysis in her lifetime. Nephrology follow-up as an outpatient. Preserved a non dominant arm for future access. Place limb alert sign at bedside. Avoid PICC lines. Avoid blood draws, Purple not lines and PICC line to preserve upper extremity vasculature for future dialysis needs. This is an evidence based guidelines. (8) Congestive heart failure: Qualifiers: Heart failure chronicity: chronic Heart failure type: diastolic Qualified Code(s): I50.32 - Chronic diastolic (congestive) heart failure Code(s): I50.9 - Heart failure, unspecified Status: Chronic Assessment and Plan: Currently on oxygen at 3 L per nasal cannula. Due to hypotension cardioprotective medication including metoprolol and diuretics have been held. (9) Chronic respiratory failure with hypoxia: Code(s): J96.11 - Chronic respiratory failure with hypoxia Status: Acute Assessment and Plan: Continue oxygen supplementation. (10) Morbid obesity: Code(s): E66.01 - Morbid (severe) obesity due to excess calories Status: Acute Assessment and Plan: Calorie restricted diet. Due to morbid state, activity is very limited. (11) DVT (deep venous thrombosis): Qualifiers: Affected thrombotic vein of extremity: unspecified
[2021-07-04 12:56] LABS: Alveolar/Arterial O2 Gradient 525.8 mmHg; Base Excess ABG -12.1 mEq/l (+/-2.0); Fractional Inspired Oxygen 100 %; HCO3 ABG 14.3 mEq/l (22.0-26.0); Oxygen Content ABG 13.2 %vol (16.0-22.0); Oxygen Saturation ABG 98.6 % (95.0-100.0); Oxyhemoglobin 97.4 % THb (90.0-100.0); PCO2 ABG 34.4 mmHg (35.0-45.0); PO2 ABG 152.8 mmHg (80.0-100.0); PO2 FiO2 Ratio Arterial Blood 1.53 %; Total Hemoglobin 9.4 g/dL (12.0-18.0)
[2021-07-04 12:57] LABS: Device NON-REBREATHER MASK; Modified Allen's Test Pass; Site Drawn RIGHT RADIAL; pH ABG 7.236 (7.350-7.450)
[2021-07-04 13:24] VITALS: BMI 48.4
[2021-07-04 13:35] VITALS: PULSE 126
--- NOTE | 2021-07-04 14:04 | PC.NURSE ---
went into room around 1235 to give patient her insulin. patient in chair resting on bedside table. unable to arouse patient, patient cold to touch. blood noted in pedro catheter and small amount on floor by feet. Upon further inspection, large amount of blood noted in chair under patient. rapid response called and patient louie lifted back to bed. pulse weak and low blood pressure noted. iv occluded. new iv placed by Tran. Dr. Sahni attempting to reach family. sister came and said that son is poa and is on the way but she would like everything done until he is able to get here. patient transferred to room ICU 9. report given to Gauri Fair RN.
--- NOTE | 2021-07-04 14:11 | WPDPROCEDUR ---
Procedures Intubation Intubation Date: 07/04/21 Intubation Time: 13:50 A pre-procedural Time-Out was completed immediately before starting the procedure and confirmed: Patient Identification, Site, Procedure, Patient Position and the Availability of Requisite Equipment: Yes Sedative: etomidate Mg given: 20 Paralytic: succinylcholine Mg given: 100 Laryngoscope: fiber optic video scope Assist device used: fiber optic device ET tube size: 7.5 Tube secured depth (cm): 23 Tube secured location: lips Tube placement confirmation: visualized tube passing through cords, equal breath sounds bilaterally, no breath sounds over epigastrium and confirmation by capnometry Patient tolerated procedure: well Intubation complications: none
--- NOTE | 2021-07-04 14:12 | P.PCNBED_ITS ---
Procedures Central Line Placement Right IJ: Central Line Date: 07/04/21 Central Line Time: 14:05 Discussed w/ the patient/family/POA,the placement of a central venous catheter, including its clinical necessity/indication & associated potential risks, benifits and alternatives.: Yes The patient/family/POA understand(s) and acknowledge(s) the need to proceed with central venous catheter insertion as an important element of the patient's clinical management.: Yes Time Out Performed: Yes Patient Position: supine Patient placed on monitor/pulse ox: Yes Provider Prep: mask, sterile gown, sterile gloves, Max. sterile barrier precautions, cap and hand hygiene with conventional soap/water or alcohol based hand rub Central line prep: 2% Chlorhexidine scrub Local anesthesia used: lidocaine 1% Amount of anesthesia used (ml): 3 Sterile US Technique with sterile gel/sterile probe covers: Yes Central line lumen inserted: triple Turkmen: 12 Length (cm): 16 Depth of Insertion (cm): 16 Post Procedure: sutured in place, good blood return, all ports aspirated, flushed, capped, transparent dressing, hemostatic product, antimicrobial product, securement product and aseptic technique maintained throughout procedure Patient tolerated procedure: well Complications: none
--- NOTE | 2021-07-04 14:14 | PDCODEBLUE ---
Code Blue Note Code Blue Note Time Arrived at Code Blue: 1400 Initial Rhythm on Arrival: Pulseless electrical activity Airway Management: Pt being bagged on arrival Chest Compressions: No compressions given Result of Code Blue: In ICU Cardiac Rhythm Post Code: Pulseless electrical activity Code Blue Summary: I was called for a rapid response, she is an obese patient and had a lot of bleeding from possible her wounds on the back or rectal bleeding which was bright red, almost on the whole bad. Patient was pale on my arrival, unresponsive, agonal breathing, was brought immediately to the ICU and was intubated central line was placed as patient only had 22 gauge peripheral access. Post central line placement patient had thready pulse, was given epinephrine, bicarbonate, calcium, dextrose. Patient's family decided to stop everything and let her go in peace.
--- NOTE | 2021-07-04 15:05 | PCPTNOTE ---
Rapid response called this afternoon and pt was transferred to the ICU. Will hold therapy at this time and await new orders when pt is appropriate.
[2021-07-04 15:30] VITALS: PULSE 163; O2SAT 99
--- NOTE | 2021-07-04 16:02 | PC.NURSE ---
Pt. had rapid response called by bedside nurse Gia at 1238. Print [employer] Chief Clerk called to bedside and decision to intubated was made per sister's request. Pt. transferred to ICU and intubated and central line placed. Pulse became very weak and only audible per doppler. 2 amps of bicarb given, amp of dextrose given, amp of calcium chloride given, and amp of epinephrine given. Pt.'s son arrived to ICU and decided to end resuscitation efforts. Time of 1420.
--- NOTE | 2021-07-04 18:22 | PM.DDS ---
Discharge Summary Date and Time Date of : 07/04/21 Time of : 14:20 Provider Pronounced By: Gauri Manzanares RN and Rosalba Spann RN Probable Cause of Probable Cause of : Hypotension secondary to acute blood loss. Summary Hospital Course: Please refer to admission H& P. 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 Of note patient was admitted to [facility] few weeks ago and had had her bedside debridement of her wound. 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 On admission,she denies fevers or sweats, but endorsed chills. She has no pain in the area. On inspection the wound is 12 cm x 9 cm in tunnels deep towards the buttock with malodorous smell. In addition there is a small superficial decubitus ulcer the size of a silver dollar on the left hip.She presented with worsening bleeding for the past 1 week prior to admission and increasing pain to her right buttock area. She denies any fevers however reports some chills. She denies nausea or vomiting, worsening shortness of breath, chest pain or any other complaints. In ED patient was noted to have elevated white count and necrotic appearing decubitus ulcer. She received IV vancomycin and aztreonam in the ED which was maintained after transfer to the floor. On admission vital signs are stable with a temperature of 98.4? F, pulse rate 102, respiratory rate 18, blood pressure 115/67 and oxygen saturation 100% on 4 L which is her baseline oxygen requirement. Patient was appropriately started on IV fluid and IV antibiotics. General surgery was contacted for wound care purposes and recommendations are appreciated. Patient was on IV antibiotic from 06/26/2021 through 06/30/2021. On 06/27/2021, patient became hypotensive with blood pressure in the 92/50 3-90 9/64 range. Her blood pressure and cardioprotective medications, including torsemide, metoprolol and spironolactone were held. Hypotension was attributed to dehydration with an element of over-diuresis. Her blood pressure improved when she improved clinically. Her wound cultures have resulted positive for Proteus mirabilis. Patient was on IV daptomycin and aztreonam. Per ID recommendation she was switched to Augmentin on 07/01/2021 in anticipation of discharge. Original plan was to discharge patient back to nursing facility on oral antibiotic based on recommendations by Infectious Diseases. Patient's discharge was delayed due to altered mental status. On physical exam she was lethargic, with delayed and slow responses. On examination she was clearly nonfocal. Head CT did not reveal any bleeding or any major space-occupying lesion. Neurology was consulted. She was being evaluated for possible metabolic encephalopathy. This morning the patient was stable and afebrile. Head mentation improved significantly as she was more awake alert and interactive. Decision was made to re-engage the patient will physical therapy. She was placed out of bed to chair. After few minutes nurse found the patient slumped over, with bleeding coming from the left hip superficial wound. Patient family was called, patient was a DNR. IV access was obtained, patient was started on IV fluids. Accu-Cheks was within acceptable range. ABG was obtained. Patient was started on non-rebreather mask. Upon arrival of her sister, given the delayed arrival by the son we had to start resuscitative measures and bili sister is her request. Patient was intubated central access was obtained. Per family request we did start CPR. Despite our best efforts, patient passed at 2:20 p.m. when she was pronounced. Additional Data Confirmation of as documented by pronouncing clinician: Pupillary Reflex, Palpable Pulses, Response to Stimuli, Heart
[2021-07-05 12:52] LABS: Red Blood Cell Folate >1000 ng/mL RBC (>280)
== END 2021-07-04 14:20 | disposition expired | DRG 592 ==
LOC: ANHED 06:32 → ANH3MEDSUR 07:27 → ANHICU 07-05 08:52
PROVIDERS: Internal Medicine; Admitting Provider Internal Medicine; Emergency Provider Emergency Medicine; Visit Provider Internal Medicine
DX: L89.152 Pressure ulcer of sacral region, stage 2 (principal); G93.41 Metabolic encephalopathy; Z68.42 Body mass index [BMI] 45.0-49.9, adult; I13.0 Hypertensive heart and chronic kidney disease with heart failure and stage 1 through stage 4 chronic kidney disease, or unspecified chronic kidney disease; J96.11 Chronic respiratory failure with hypoxia; E87.1 Hypo-osmolality and hyponatremia; I50.32 Chronic diastolic (congestive) heart failure; N18.4 Chronic kidney disease, stage 4 (severe); L89.219 Pressure ulcer of right hip, unspecified stage; L89.229 Pressure ulcer of left hip, unspecified stage; L08.89 Other specified local infections of the skin and subcutaneous tissue; B96.4 Proteus (mirabilis) (morganii) as the cause of diseases classified elsewhere; E11.22 Type 2 diabetes mellitus with diabetic chronic kidney disease; E66.01 Morbid (severe) obesity due to excess calories; D72.829 Elevated white blood cell count, unspecified; D64.9 Anemia, unspecified; R82.71 Bacteriuria; E78.00 Pure hypercholesterolemia, unspecified; R40.4 Transient alteration of awareness; I95.89 Other hypotension; D63.1 Anemia in chronic kidney disease; G47.33 Obstructive sleep apnea (adult) (pediatric); J44.9 Chronic obstructive pulmonary disease, unspecified; E03.9 Hypothyroidism, unspecified; M10.9 Gout, unspecified; E78.5 Hyperlipidemia, unspecified; E86.0 Dehydration; H91.90 Unspecified hearing loss, unspecified ear; Z66 Do not resuscitate; K59.00 Constipation, unspecified; Z86.711 Personal history of pulmonary embolism; Z86.718 Personal history of other venous thrombosis and embolism; Z90.49 Acquired absence of other specified parts of digestive tract; Z90.710 Acquired absence of both cervix and uterus; Z79.01 Long term (current) use of anticoagulants; Z99.81 Dependence on supplemental oxygen
CPT/HCPCS: 36415; 36430; 36600; 70450; 80048; 80053; 80202; 81001; 82550; 82565; 82607; 82728; 82746; 82747; 82805; 82948; 83036; 83540; 83550; 83605; 83735; 84100; 84443; 85014; 85018; 85025; 85027; 85610; 85652; 85730; 86140; 86592; 86900; 86901; 86920; 87040; 87070; 87077; 87086; 87088; 87186; 87205; 94002; 96361; 96365; 96366; 96367; 96375; 96376; 97110; 97162; 97165; 97530; 99285; A9270; C1751; G0378; J0171; J0878; J1815; J2270; J3370; J7030; J7040; J7060; P9016